=== PATIENT | female | born 1955 | race Caucasian/White ===

== ENCOUNTER 2016-06-24 09:26 | Observation (INO) | payer BC ==
[2016-06-24] MEDS ORDERED: ASPIRIN 81 MG CHEW PO STA (10:31)
[2016-06-24] MEDS ORDERED: SODIUM CHLORIDE 0.9% 1,000 ML IV STA (10:31)
--- NOTE | 2016-06-24 10:47 | ED ---
General Adult HPI - General Source: patient, RN notes reviewed Mode of arrival: ambulatory Limitations: no limitations <Tatiana Monteiro - Last Filed: 06/24/16 14:17> <Jose Luis Okeefe - Last Filed: 06/24/16 14:45> - General Chief complaint: Dizziness Stated complaint: chest pain Time Seen by Provider: 06/24/16 10:22 - History of Present Illness Initial comments: 61-year-old female presents to the emergency Department chief complaint of lightheadedness. Patient initial Christie just felt lightheaded she felt like she might pass out. Patient patient described pain to the right shoulder. Patient states she then went to work feeling off. Patient states while at work she got pain to the left side she felt a little sweaty she said that she looked pale she just did not feel right. Patient states that she then decided she come to the emergency department. Patient states she has hypertension but she' s never had any heart issues. Patient states that this time she has no pain she sits up she gets lightheaded when she was back down she feels better. Patient denies any shortness of breath with this or nausea. Patient states she' s been better at this time but it has been coming and going all morning. Patient states that she is not having any other symptoms with this. Patient denies any recent fever, chills, shortness of breath, back pain, abdominal pain , nausea vomiting, numbness or tingling, dysuria or hematuria, constipation or diarrhea, headaches or visual changes, or any other current symptoms. (Tatiana Monteiro) - Related Data Home Medications Medication Instructions Recorded Confirmed Aspirin 325 - 650 mg PO DAILY PRN 06/24/16 06/24/16 Cholecalciferol [Vitamin D3] 1,000 unit PO DAILY 06/24/16 06/24/16 Ibuprofen [Motrin] 200 - 400 mg PO Q6H PRN 06/24/16 06/24/16 Levothyroxine Sodium [Synthroid] 75 mcg PO DAILY 06/24/16 06/24/16 Losartan-Hctz 50-12.5 mg [Hyzaar 1 tab PO DAILY 06/24/16 06/24/16 50-12.5] Multivits-Min/Iron/FA/Lutein 1 tab PO DAILY 06/24/16 06/24/16 [Centrum Silver Women Tablet] Allergies Allergy/AdvReac Type Severity Reaction Status Date / Time codeine AdvReac Confusion Verified 06/24/16 10:14 Review of Systems ROS Other: All systems not noted in ROS Statement are negative. <Tatiana Monteiro - Last Filed: 06/24/16 14:17> ROS Other: All systems not noted in ROS Statement are negative. <Jose Luis Okeefe - Last Filed: 06/24/16 14:45> ROS Statement: Those systems with pertinent positive or pertinent negative responses have been documented in the HPI. Past Medical History Past Medical History: Hypertension, Thyroid Disorder History of Any Multi-Drug Resistant Organisms: None Reported Past Surgical History: Appendectomy, Hysterectomy Past Psychological History: No Psychological Hx Reported Smoking Status: Never smoker Past Alcohol Use History: None Reported Past Drug Use History: None Reported <Tatiana Monteiro - Last Filed: 06/24/16 14:17> General Exam Limitations: no limitations <Tatiana Monteiro - Last Filed: 06/24/16 14:17> <Jose Luis Okeefe - Last Filed: 06/24/16 14:45> - General Exam Comments Initial Comments: General: The patient is awake and alert, in no distress, and does not appear acutely ill. Eye: Pupils are equal, round and reactive to light, extra-ocular movements are intact; there is normal conjunctiva bilaterally. No signs of icterus. Ears, nose, mouth and throat: There are moist mucous membranes. Neck: The neck is supple, there is no tenderness. Cardiovascular: There is a regular rate and rhythm. No murmur, rub or gallop is appreciated. Respiratory: Lungs are clear to auscultation, respirations are non-labored, breath sounds are equal. No wheezes, stridor, rales, or rhonchi. Gastrointestinal: Soft, non-distended, non-tender abdomen without masses or organomegaly noted. There is no rebound or guarding present. No CVA tenderness. Bowel sounds are unremarkable. Back: There is no tenderness to palpation in the midline. There is no obvious deformity. No rashes noted. Musculoskeletal: Normal ROM, no tenderness, There is no pedal edema. There is no calf tenderness or swelling. Sensation intact. Pulses equal bilaterally 2+. Neurological: CN II-XII intact, There are no obvious motor or sensory deficits. Coordination appears grossly intact. Speech is normal. Skin: Skin is warm and dry and no rashes or lesions are noted. Psychiatric: Cooperative, appropriate mood & affect, normal judgment. (Tatiana Monteiro) Course <Tatiana Monteiro - Last Filed: 06/24/16 14:17> <Jose Luis Okeefe - Last Filed: 06/24/16 14:45> Vital Signs 06/24/16 06/24/16 09:33 13:23 Temperature 98.1 F Pulse Rate 55 L 56 L Respiratory 20 16 Rate Blood Pressure 136/74 146/70 O2 Sat by Pulse 100 99 Oximetry - Reevaluation(s) Reevaluation #1: 06/24/16 14:45 I did personally do a [id number] evaluation the patient she currently is pain- free at rest with no dizziness at this time. Her lung sounds are within normal is this time. The patient will be admitted I did discuss the case with the covering physician. (Jose Luis Okeefe) EKG Findings - EKG Comments: EKG Findings:: Sinus bradycardia 51 bpm, normal axis, no atopy, no S-T depressions or elevations, <Tatiana Monteiro - Last Filed: 06/24/16 14:17> Medical Decision Making - Lab Data Result diagrams: 06/24/16 11:00 06/24/16 11:00 <Tatiana Monteiro - Last Filed: 06/24/16 14:17> - Lab Data Result diagrams: 06/24/16 11:00 06/24/16 11:00 <Jose Luis Okeefe - Last Filed: 06/24/16 14:45> - Medical Decision Making 61-year-old female presents to the emergency Department chief complaint of lightheadedness associated with some atypical type chest pain. At this time patient's lab work and imaging have been reviewed. Due to the patient's symptoms there is concern this may be part in nature. At this time we will admit patient will placed on heparin and do cardiac rule out. This is discussed the patient has agreed. We will consult cardiology for the patient. This and patient is negative. The plan the patient's admitting doctor was contacted and all questions have been answered. (Tatiana Monteiro) - Lab Data Lab Results 06/24/16 06/24/16 06/24/16 Range/Units 11:00 11:00 11:00 WBC 9.5 (3.8-10.6) k/uL RBC 4.45 (3.80-5.40) m/uL Hgb 14.1 (11.4-16.0) gm/dL Hct 41.5 (34.0-46.0) % MCV 93.3 (80.0-100.0) fL MCH 31.7 (25.0-35.0) pg MCHC 34.0 (31.0-37.0) g/dL RDW 11.9 (11.5-15.5) % Plt Count 358 (150-450) k/uL Neutrophils % 80 % Lymphocytes % 15 % Monocytes % 3 % Eosinophils % 1 % Basophils % 0 % Neutrophils # 7.5 (1.3-7.7) k/uL Lymphocytes # 1.4 (1.0-4.8) k/uL Monocytes # 0.3 (0-1.0) k/uL Eosinophils # 0.1 (0-0.7) k/uL Basophils # 0.0 (0-0.2) k/uL PT (9.0-12.0) sec INR (<1.1) APTT (22.0-30.0) sec Sodium 146 H (137-145) mmol/L Potassium 3.9 (3.5-5.1) mmol/L Chloride 105 (98-107) mmol/L Carbon Dioxide 28 (22-30) mmol/L Anion Gap 13 mmol/L BUN 15 (7-17) mg/dL Creatinine 0.71 (0.52-1.04) mg/dL Est GFR (MDRD) Af Amer >60 (>60 ml/min/1.73 sqM) Est GFR (MDRD) Non-Af >60 (>60 ml/min/1.73 sqM) Glucose 98 (74-99) mg/dL Calcium 10.0 (8.4-10.2) mg/dL Magnesium 1.9 (1.6-2.3) mg/dL Total Bilirubin 0.7 (0.2-1.3) mg/dL AST 23 (14-36) U/L ALT 45 (9-52) U/L Alkaline Phosphatase 85 (38-126) U/L Total Creatine Kinase 76 (30-135) U/L CK-MB (CK-2) 0.6 (0.0-2.4) ng/mL CK-MB (CK-2) Rel Index 0.8 Troponin I <0.012 (0.000-0.034) ng/mL Total Protein 7.3 (6.3-8.2) g/dL Albumin 4.4 (3.5-5.0) g/dL Amylase 68 (30-110) U/L Lipase 170 (23-300) U/L Urine Color Urine Appearance (Clear) Urine pH (5.0-8.0) Ur Specific [place] (1.001-1.035) Urine Protein (Negative) Urine Glucose (UA) (Negative) Urine Ketones (Negative) Urine Blood (Negative) Urine Nitrate (Negative) Urine Bilirubin (Negative) Urine Urobilinogen (<2.0) mg/dL Ur Leukocyte Esterase (Negative) 06/24/16 06/24/16 Range/Units 11:00 11:00 WBC (3.8-10.6) k/uL RBC (3.80-5.40) m/uL Hgb (11.4-16.0) gm/dL Hct (34.0-46.0) % MCV (80.0-100.0) fL MCH (25.0-35.0) pg MCHC (31.0-37.0) g/dL RDW (11.5-15.5) % Plt Count (150-450) k/uL Neutrophils % % Lymphocytes % % Monocytes % % Eosinophils % % Basophils % % Neutrophils # (1.3-7.7) k/uL Lymphocytes # (1.0-4.8) k/uL Monocytes # (0-1.0) k/uL Eosinophils # (0-0.7) k/uL Basophils # (0-0.2) k/uL PT 10.0 (9.0-12.0) sec INR 1.0 (<1.1) APTT 21.6 L (22.0-30.0) sec Sodium (137-145) mmol/L Potassium (3.5-5.1) mmol/L Chloride (98-107) mmol/L Carbon Dioxide (22-30) mmol/L Anion Gap mmol/L BUN (7-17) mg/dL Creatinine (0.52-1.04) mg/dL Est GFR (MDRD) Af Amer (>60 ml/min/1.73 sqM) Est GFR (MDRD) Non-Af (>60 ml/min/1.73 sqM) Glucose (74-99) mg/dL Calcium (8.4-10.2) mg/dL Magnesium (1.6-2.3) mg/dL Total Bilirubin (0.2-1.3) mg/dL AST (14-36) U/L ALT (9-52) U/L Alkaline Phosphatase (38-126) U/L Total Creatine Kinase (30-135) U/L CK-MB (CK-2) (0.0-2.4) ng/mL CK-MB (CK-2) Rel Index Troponin I (0.000-0.034) ng/mL Total Protein (6.3-8.2) g/dL Albumin (3.5-5.0) g/dL Amylase (30-110) U/L Lipase (23-300) U/L Urine Color Colorless Urine Appearance Clear (Clear) Urine pH 7.0 (5.0-8.0) Ur Specific [place] 1.004 (1.001-1.035) Urine Protein Negative (Negative) Urine Glucose (UA) Negative (Negative) Urine Ketones Negative (Negative) Urine Blood Negative (Negative) Urine Nitrate Negative (Negative) Urine Bilirubin Negative (Negative) Urine Urobilinogen <2.0 (<2.0) mg/dL Ur Leukocyte Esterase Negative (Negative) Disposition Time of Disposition: 14:18 Decision Date: 06/24/16 Decision Time: 14:18 <Tatiana Monteiro - Last Filed: 06/24/16 14:17> <Jose Luis Okeefe - Last Filed: 06/24/16 14:45> Clinical Impression: Lightheadedness, Unstable angina Disposition: ADMITTED IP TO THIS [facility] Condition: Stable
[2016-06-24 11:26] LABS: Appearance,Urine Clear (Clear); Bilirubin,Urine Negative (Negative); Glucose,Urine (UA) Negative (Negative); Ketones,Urine Negative (Negative); Leukocyte Esterase,Urine Negative (Negative); Nitrite,Urine Negative (Negative); Protein,Urine Negative (Negative); Specific Gravity,Urine 1.004 (1.001-1.035); UA Billing (MACRO vs. MICRO) CHEM; Urobilinogen,Urine <2.0 mg/dL (<2.0)
[2016-06-24 11:27] LABS: Basophils % (A) 0 %; CH 32.4; CHCM 34.8; Eosinophils # (A) 0.1 k/uL (0-0.7); Eosinophils % (A) 1 %; HCT 41.5 % (34.0-46.0); HDW 2.45; HGB 14.1 gm/dL (11.4-16.0); Luc # (Auto) 0.08; Luc % (Auto) 1; Lymphocytes # (A) 1.4 k/uL (1.0-4.8); Lymphocytes % (A) 15 %; MCH 31.7 pg (25.0-35.0); MCV 93.3 fL (80.0-100.0); Mean Platelet Volume 7.2; Monocytes # (A) 0.3 k/uL (0-1.0); Monocytes % (A) 3 %; Neutrophils # (A) 7.5 k/uL (1.3-7.7); Neutrophils % (A) 80 %; RBC 4.45 m/uL (3.80-5.40); RDW 11.9 % (11.5-15.5); WBC 9.5 k/uL (3.8-10.6)
[2016-06-24 11:36] LABS: ALT 45 U/L (9-52); AST 23 U/L (14-36); Alkaline Phosphatase 85 U/L (38-126); Amylase 68 U/L (30-110); Anion Gap 13 mmol/L; Blood Urea Nitrogen 15 mg/dL (7-17); Carbon Dioxide 28 mmol/L (22-30); Chloride 105 mmol/L (98-107); Glucose 98 mg/dL (74-99); Magnesium 1.9 mg/dL (1.6-2.3); Non-African American GFR(MDRD) >60 (>60 ml/min/1.73 sqM); Potassium 3.9 mmol/L (3.5-5.1); Sodium 146 mmol/L (137-145); Total Bilirubin 0.7 mg/dL (0.2-1.3); Total Protein 7.3 g/dL (6.3-8.2)
[2016-06-24 11:51] LABS: Creatine Kinase 76 U/L (30-135)
[2016-06-24 11:53] LABS: Partial Thromboplastin Time 21.6 sec (22.0-30.0)
--- NOTE | 2016-06-24 12:04 | XR ---
EXAMINATION TYPE: XR chest 2V DATE OF EXAM: 06/24/2016 11:22 AM COMPARISON: NONE HISTORY: Right-sided chest pain TECHNIQUE: Frontal and lateral views of the chest are obtained. FINDINGS: There is no focal air space opacity, pleural effusion, or pneumothorax seen. The cardiac silhouette size is within normal limits. There are overlying cardiac leads. The osseous structures a re intact. IMPRESSION: No acute cardiopulmonary process.
[2016-06-24 12:05] LABS: Creatine Kinase MB 0.6 ng/mL (0.0-2.4); Troponin I <0.012 ng/mL (0.000-0.034)
[2016-06-24 13:24] VITALS: RESP 16
[2016-06-24] MEDS ORDERED: NITROGLYCERIN SL TABS 0.4 MG TAB SUBLINGUAL PRN (14:18)
[2016-06-24] MEDS ORDERED: HEPARIN SODIUM,PORCINE/D5W PMX 25,000 UNIT in DEXTROSE/WATER 1 500ML.BAG IV SCH (14:30)
[2016-06-24] MEDS: HEPARIN SODIUM,PORCINE 5,000 UNIT/ML 1 ML VIAL IV ONE (15:27)
[2016-06-24 19:24] LABS: Creatine Kinase 121 U/L (30-135)
[2016-06-24 19:36] LABS: Creatine Kinase MB 1.4 ng/mL (0.0-2.4); Troponin I <0.012 ng/mL (0.000-0.034)
[2016-06-24 23:15] LABS: Creatine Kinase 65 U/L (30-135)
[2016-06-24 23:30] LABS: Creatine Kinase MB 0.4 ng/mL (0.0-2.4); Troponin I <0.012 ng/mL (0.000-0.034)
[2016-06-25] MEDS: HEPARIN SODIUM,PORCINE 5,000 UNIT/ML 1 ML VIAL IV ONE (02:25)
[2016-06-25] MEDS ORDERED: HEPARIN SODIUM,PORCINE 5,000 UNIT/ML 1 ML VIAL IV PRN (02:29)
[2016-06-25] MEDS ORDERED: LEVOTHYROXINE 75 MCG TAB PO SCH (06:30)
[2016-06-25] MEDS ORDERED: ASPIRIN 325 MG TAB PO SCH (09:00)
[2016-06-25] MEDS ORDERED: LOSARTAN-HCTZ 50-12.5 MG 1 EACH TAB PO SCH (09:00)
[2016-06-25 09:40] LABS: Mean Platelet Volume 7.6
[2016-06-25 10:04] LABS: Cholesterol 163 mg/dL (<200); HDL Cholesterol 58 mg/dL (40-60); Triglycerides 72 mg/dL (<150)
--- NOTE | 2016-06-25 10:32 | P.CRDCN ---
History of Present Illness Consult date: 06/25/16 History of present illness: This is a 61-year-old female with history of hypertensive cardiac vascular disease for which she is being treated with Hyzaar. Apparently yesterday morning she woke up and start heparin feeling of dizziness and lightheadedness that lasted for a few minutes and then subsided spontaneously. Patient was able to do daily chores and then went to the office driving. On the way patient started feeling lightheaded and she was concerned that she may not be able to make it. She was sweating. She may to the office and sat in the chair and continued to be lightheaded and pulse up and was in the 40s. She looked pale and one of her colleagues but her to the hospital. Since admission here patient has had mild sinus bradycardia. She also admits that she had right shoulder pain along with this bradycardia. Her cardiac enzymes are negative. She is being scheduled for an echocardiogram, stress echo and also to help postural changes recorded. Further examination depend upon the findings on the above tests. Review of Systems As per the chart Past Medical History Past Medical History: Hypertension, Thyroid Disorder Additional Past Medical History / Comment(s): hypothyroid, thyroid nodules History of Any Multi-Drug Resistant Organisms: None Reported Past Surgical History: Appendectomy, Hysterectomy Additional Past Surgical History / Comment(s): Colonoscopy Past Anesthesia/Blood Transfusion Reactions: No Reported Reaction, Motion Sickness Past Psychological History: No Psychological Hx Reported Additional Psychological History / Comment(s): Pt resides with her spouse. She is independent. Smoking Status: Never smoker Past Alcohol Use History: None Reported Past Drug Use History: None Reported - Past Family History Father History Unknown: Yes Additional Family Medical History / Comment(s): Father in a train accident. Mother Family Medical History: Respiratory Disorder Additional Family Medical History / Comment(s): Mother has respiratory issues. She is a smoker. Medications and Allergies Home Medications Medication Instructions Recorded Confirmed Type Aspirin 325 - 650 mg PO DAILY PRN 06/24/16 06/24/16 History Cholecalciferol [Vitamin D3] 1,000 unit PO DAILY 06/24/16 06/24/16 History Ibuprofen [Motrin] 200 - 400 mg PO Q6H PRN 06/24/16 06/24/16 History Levothyroxine Sodium [Synthroid] 75 mcg PO DAILY 06/24/16 06/24/16 History Losartan-Hctz 50-12.5 mg [Hyzaar 1 tab PO DAILY 06/24/16 06/24/16 History 50-12.5] Multivits-Min/Iron/FA/Lutein 1 tab PO DAILY 06/24/16 06/24/16 History [Centrum Silver Women Tablet] Allergies Allergy/AdvReac Type Severity Reaction Status Date / Time codeine AdvReac Confusion Verified 06/24/16 10:14 Physical Exam Vitals: Vital Signs Temp Pulse Pulse Resp BP BP Pulse Ox 06/25/16 08:00 98.6 F 53 L 16 119/74 97 06/25/16 04:00 97.9 F 57 L 16 113/73 96 06/25/16 03:49 56 L 16 06/25/16 00:00 65 16 06/24/16 23:35 98.1 F 65 16 110/62 94 L 06/24/16 20:00 98.0 F 62 16 110/63 95 06/24/16 18:04 59 L 16 06/24/16 17:30 98.4 F 59 L 16 158/74 95 06/24/16 17:10 16 06/24/16 15:35 97.8 F 54 L 16 128/60 97 Intake and Output 06/24/16 06/25/16 06/25/16 22:59 06:59 14:59 Intake Total 188.34 Balance 188.34 Intake: Intake, IV Titration 188.34 Amount Heparin Sodium,Porcine/ 188.34 D5w Pmx 25,000 unit In Dextrose/Water 1 500ml. bag @ 12 UNITS/KG/HR 17.2 mls/hr IV .Q24H [facility] Rx#: [id number] Other: Voiding Method Toilet Toilet Toilet # Voids 1 1 Weight 72.8 kg GENERAL EXAM: Patient is alert and oriented and doesn't appear to be in any acute distress HEENT: Normocephalic. Normal reaction of pupils, equal size, normal range of extraocular motion. No erythema or exudates in the throat. NECK: No masses, no nuchal rigidity. CHEST: No chest wall deformity. LUNGS: Equal air entry with no crackles or wheeze. HEART: S1 and S2 normal with no audible mumurs or gallops. Regular rhythm, femorals equal on both sides.. ABDOMEN: No hepatosplenomegaly, normal bowel sounds, no guarding or rigidity. SKIN: No rashes CENTRAL NERVOUS SYSTEM: No focal deficits. EXTREMITIES: No cyanosis, clubbing or edema. Results 06/25/16 08:56 06/24/16 11:00 Cardiac Enzymes 06/24/16 06/24/16 Range/Units 18:38 22:17 CK-MB (CK-2) 1.4 0.4 (0.0-2.4) ng/mL Troponin I <0.012 <0.012 (0.000-0.034) ng/mL Coagulation 06/24/16 06/25/16 Range/Units 22:17 08:56 APTT 42.1 H 49.4 H (22.0-30.0) sec Lipids 06/25/16 Range/Units 08:56 Triglycerides 72 (<150) mg/dL Cholesterol 163 (<200) mg/dL HDL Cholesterol 58 (40-60) mg/dL CBC 06/25/16 Range/Units 08:56 Plt Count 296 (150-450) k/uL Current Medications Generic Name Dose Route Start Last Admin Trade Name Freq PRN Reason Stop Dose Admin Aspirin 325 mg 06/25/16 09:00 Aspirin PO DAILY [facility] Cholecalciferol 1,000 unit 06/25/16 12:00 Vitamin D3 PO 1200 [facility] HCTZ/Losartan Potassium 1 each 06/25/16 09:00 Hyzaar 50-12.5 PO DAILY [facility] Heparin Sodium (Porcine) 0 unit 06/25/16 02:29 Heparin IV PER PROTOCOL PRN Low PTT Protocol Heparin Sodium/Dextrose 25,000 500 mls @ 17.2 mls/hr 06/24/16 14:30 06/25/16 02:25 unit/ IV Solution IV 14.65 units/kg/hr .Q24H [facility] 21 mls/hr Protocol Titration 12 UNITS/KG/HR Levothyroxine Sodium 75 mcg 06/25/16 06:30 Synthroid PO DAILY@0630 [facility] Multivitamins 1 each 06/25/16 12:00 Theragran PO 1200 [facility] Nitroglycerin 0.4 mg 06/24/16 14:18 Nitrostat SUBLINGUAL Q5M PRN Chest Pain Intake and Output 06/24/16 06/25/16 06/25/16 22:59 06:59 14:59 Intake Total 188.34 Balance 188.34 Intake: Intake, IV Titration 188.34 Amount Heparin Sodium,Porcine/ 188.34 D5w Pmx 25,000 unit In Dextrose/Water 1 500ml. bag @ 12 UNITS/KG/HR 17.2 mls/hr IV .Q24H [facility] Rx#: [id number] Other: Voiding Method Toilet Toilet Toilet # Voids 1 1 Weight 72.8 kg 06/25/16 08:56 EKG Interpretations (text) Sinus bradycardia Assessment and Plan (1) Right shoulder pain Status: Acute (2) Lightheadedness Status: Acute (3) Hypertension Status: Acute Plan: We'll monitor her orthostatic blood pressures. She is going to be evaluated by echocardiogram and also stress echo. Further recommendation will depend upon clinical course. Thyroid function studies will also be obtained. If this test turned out to be normal, patient could be discharged home with long-term monitoring with event monitor.
[2016-06-25] MEDS ORDERED: CHOLECALCIFEROL 1,000 UNIT TAB PO SCH (12:00)
[2016-06-25] MEDS ORDERED: MULTIVITAMINS, THERA 1 EACH TAB PO SCH (12:00)
[2016-06-25 12:28] VITALS: BP 113/68; PULSE 62; TEMP 98.3
--- NOTE | 2016-06-25 12:49 | ECHOF ---
Referral Reason:Chest pain and cardiomyopathy MEASUREMENTS -------- HEIGHT: 162.6 cm WEIGHT: 72.6 kg BP: IVSd: 1.0 cm (0.6 - 1.1) LVIDd: 3.6 cm (3.9 - 5.3) LVPWd: 1.3 cm (0.6 - 1.1) IVSs: 1.6 cm LVIDs: 1.6 cm LVPWs: 1.8 cm Ao Diam: 3.0 cm (2.0 - 3.7) AV Cusp: 2.3 cm (1.5 - 2.6) LA Diam: 3.5 cm (2.7 - 3.8) MV EXCURSION: 13.189 mm (> 18.000) MV EF SLOPE: 93 mm/s (70 - 150) EPSS: 0.2 cm MV E Sanjay: 0.81 m/s MV DecT: 213 ms MV A Sanjay: 0.76 m/s MV E/A Ratio: 1.07 AR PHT: 540 ms RAP: 5.00 mmHg RVSP: 40.07 mmHg FINDINGS -------- Sinus rhythm. This was a technically good study. There is mild concentric left ventricular hypertrophy. Overall left ventricular systolic function is normal with, an EF between 55 - 60 %. The right ventricle is normal in size and function. The left atrium is normal in size. The right atrium is normal in size. Aneurysmal Interatrial septum. Possible PFO Aortic valve is trileaflet and is mildly thickened. There is mild aortic regurgitation. Mild mitral regurgitation is present. Moderate tricuspid regurgitation present. There is mild pulmonary hypertension. The right ventricular systolic pressure, as measured by Doppler, is 40.07mmHg. Pulmonic valve appears structurally normal. The aortic root size is normal. The pericardium is normal. CONCLUSIONS -------- 1. Sinus rhythm. 2. Aortic valve is trileaflet and is mildly thickened. 3. There is mild aortic regurgitation. 4. Mild mitral regurgitation is present. 5. Moderate tricuspid regurgitation present. 6. There is mild pulmonary hypertension. 7. The right ventricular systolic pressure, as measured by Doppler, is 40.07mmHg. 8. Pulmonic valve appears structurally normal. 9. The aortic root size is normal. 10. The pericardium is normal. 11. This was a technically good study. 12. There is mild concentric left ventricular hypertrophy. 13. Overall left ventricular systolic function is normal with, an EF between 55 - 60 %. 14. The right ventricle is normal in size and function. 15. The left atrium is normal in size. 16. The right atrium is normal in size. 17. Aneurysmal Interatrial septum. 18. Possible PFO PSYCH ASSISTANT: Sophia Azar RDCS
--- NOTE | 2016-06-25 14:15 | ECHOS ---
DATE OF SERVICE: 06/25/2016 AGE: 61Y SEX: F HT: 64" WT: 160 lbs. Protocol Jesse: X Others: Stress Echo Stage: 3 Dur. of Exercise: 8:00 *Heart Rate Blood Pressure *Rest: 63 Rest: 138/85 * *Max. Achieved: 147 Maximum BP: 178/87 85% PMHR: 134 100% PMHR: 158 *METS: 9.0 INDICATIONS: Chest pain. MEDICATIONS: Synthroid, Hyzaar. Resting ECG shows sinus rhythm, rate of 63 beats per minute, NV interval 0.16, QRS 0.08, normal ST-T waves. Utilizing a standard Jesse protocol, a symptom-limited treadmill test was performed. Patient exercised for total of 8 minutes, reaching a peak heart rate of 147 beats per minute, approximately 93% predicted maximum heart rate without any chest pain or pressure or ST segment deviations indicative of ischemia. Patient did not report any symptoms throughout the study. Baseline images show normal thickening and contractility. Postexercise images shows improved contractility and thickening consistent with normal stress echocardiogram. IMPRESSION: 1. Normal stress echocardiogram. 2. Patient has good cardiopulmonary fitness as indicated by O2 max and METs. 3. Patient attained a peak metabolic activity equivalent to 9 METs. 4. Patient did not report any symptoms throughout the study.
--- NOTE | 2016-06-25 16:19 | P.HPIM ---
History of Present Illness H&P Date: 06/25/16 Chief Complaint: Right chest pain HISTORY AND PHYSICAL AND DISCHARGE SUMMARY: This is a 61-year-old female. Her primary care physician is Dr. Mauricio Farfan. She has a past medical history of hypertension, hypothyroidism and thyroid nodules. Patient states she had sudden onset of chest pain in the right upper area and right shoulder and also felt lightheaded and dizzy. She states it started when she woke up. She denies any triggering factors. She denies any change in the pain when she moved her neck, had her shoulder. She describes it as an ache. She denies having any nausea or vomiting. Pain resolved 1-2 hours after her arrival here it seemed to go away on its own. She denies any lower extremity edema, shortness of breath. Troponin 3 negative. Triglycerides 72, cholesterol 163, LDL 91, HDL 58. TSH 2.830. Urinalysis negative. Amylase and lipase within normal limits. Patient was placed in the observation unit and seen in consultation by cardiology. Stress test was ordered which was negative and patient will be discharged home today in stable condition. Echocardiogram revealed mild aortic regurgitation, mild mitral regurgitation, moderate tricuspid regurgitation, mild pulmonary hypertension, mild concentric left ventricular hypertrophy, EF 55-60% aneurysmal intra-atrial septum, possible PFO. Review of Systems All systems: negative Constitutional: Denies chills, Denies fever Eyes: denies blurred vision, denies pain Ears, nose, mouth and throat: Reports vertigo, Denies headache, Denies sore throat Cardiovascular: Reports chest pain, Reports lightheadedness, Denies dyspnea on exertion, Denies edema, Denies leg edema, Denies orthopnea, Denies palpitations , Denies shortness of breath, Denies syncope Respiratory: Denies cough, Denies cough with sputum, Denies dyspnea Gastrointestinal: Denies abdominal pain, Denies diarrhea, Denies nausea, Denies vomiting Genitourinary: Denies dysuria, Denies hematuria Musculoskeletal: Denies myalgias Integumentary: Denies pruritus, Denies rash Neurological: Denies numbness, Denies weakness Psychiatric: Denies anxiety, Denies depression Endocrine: Denies fatigue, Denies weight change Past Medical History Past Medical History: Hypertension, Thyroid Disorder Additional Past Medical History / Comment(s): hypothyroid, thyroid nodules History of Any Multi-Drug Resistant Organisms: None Reported Past Surgical History: Appendectomy, Hysterectomy Additional Past Surgical History / Comment(s): Colonoscopy Past Anesthesia/Blood Transfusion Reactions: No Reported Reaction, Motion Sickness Past Psychological History: No Psychological Hx Reported Additional Psychological History / Comment(s): Pt resides with her spouse. She is independent. Smoking Status: Never smoker Past Alcohol Use History: None Reported Additional Past Alcohol Use History / Comment(s): She has been a lifelong nonsmoker. She denies any medical marijuana, marijuana, street drug or alcohol use. Past Drug Use History: None Reported - Past Family History Father History Unknown: Yes Additional Family Medical History / Comment(s): Father in a train accident. Mother Family Medical History: Respiratory Disorder Additional Family Medical History / Comment(s): Mother has respiratory issues. She is a smoker. Medications and Allergies Home Medications Medication Instructions Recorded Confirmed Type Aspirin 325 - 650 mg PO DAILY PRN 06/24/16 06/24/16 History Cholecalciferol [Vitamin D3] 1,000 unit PO DAILY 06/24/16 06/24/16 History Ibuprofen [Motrin] 200 - 400 mg PO Q6H PRN 06/24/16 06/24/16 History Levothyroxine Sodium [Synthroid] 75 mcg PO DAILY 06/24/16 06/24/16 History Losartan-Hctz 50-12.5 mg [Hyzaar 1 tab PO DAILY 06/24/16 06/24/16 History 50-12.5] Multivits-Min/Iron/FA/Lutein 1 tab PO DAILY 06/24/16 06/24/16 History [Centrum Silver Women Tablet] Allergies Allergy/AdvReac Type Severity Reaction Status Date / Time codeine AdvReac Confusion Verified 06/24/16 10:14 Physical Exam Vitals: Vital Signs Temp Pulse Pulse Pulse Pulse Pulse Resp 06/25/16 12:00 98.3 F 64 72 62 16 06/25/16 08:00 98.6 F 53 L 16 06/25/16 04:00 97.9 F 57 L 16 06/25/16 03:49 56 L 16 06/25/16 00:00 65 16 06/24/16 23:35 98.1 F 65 16 06/24/16 20:00 98.0 F 62 16 06/24/16 18:04 59 L 16 06/24/16 17:30 98.4 F 59 L 16 06/24/16 17:10 16 06/24/16 15:35 97.8 F 54 L 16 BP BP BP BP BP Pulse Ox 06/25/16 12:00 114/86 115/80 113/68 93 L 06/25/16 08:00 119/74 97 06/25/16 04:00 113/73 96 06/25/16 03:49 06/25/16 00:00 06/24/16 23:35 110/62 94 L 06/24/16 20:00 110/63 95 06/24/16 18:04 06/24/16 17:30 158/74 95 06/24/16 17:10 06/24/16 15:35 128/60 97 Intake and Output 06/24/16 06/25/16 06/25/16 22:59 06:59 14:59 Intake Total 188.34 Balance 188.34 Intake: Intake, IV Titration 188.34 Amount Heparin Sodium,Porcine/ 188.34 D5w Pmx 25,000 unit In Dextrose/Water 1 500ml. bag @ 12 UNITS/KG/HR 17.2 mls/hr IV .Q24H [facility] Rx#: [id number] Other: Voiding Method Toilet Toilet Toilet # Voids 1 1 Weight 72.8 kg Gen: This is a 61-year-old female. She is sitting up in bed and eating lunch and appears to be in no acute distress. HEENT: Head is atraumatic, normocephalic. Pupils equal, round. Sclerae is anicteric. NECK: Supple. No JVD. No lymphadenopathy. No thyromegaly. LUNGS: Clear to auscultation. No wheezes or rhonchi. No intercostal retractions. HEART: Regular rate and rhythm. No murmur. ABDOMEN: Soft. Bowel sounds are present. No masses. No tenderness. EXTREMITIES: No pedal edema. No calf tenderness. Dorsalis pedis +2 bilaterally. NEUROLOGICAL: Patient is awake, alert and oriented x3. Cranial nerves 2 through 12 are grossly intact. Results CBC & Chem 7: 06/25/16 08:56 06/24/16 11:00 Labs: Abnormal Lab Results - Last 24 Hours (Table) 06/24/16 06/25/16 Range/Units 22:17 08:56 APTT 42.1 H 49.4 H (22.0-30.0) sec Thrombosis Risk Factor Assmnt - DVT/VTE Prophylaxis DVT/VTE Prophylaxis: Mechanical Prophylaxis ordered - Choose All That Apply Any of the Below Risk Factors Present?: Yes Each Factor Represents 1 point: Obesity (BMI >25) Other Risk Factors: Yes Each Risk Factor Represents 2 Points: Age 61-74 years Other congenital or acquired thrombophilia - If yes, enter type in comment: No Thrombosis Risk Factor Assessment Total Risk Factor Score: 3 Thrombosis Risk Factor Assessment Level: Moderate Risk Assessment and Plan Plan: 1. Right anterior chest wall and right shoulder pain, noncardiac. Stress test negative. Patient will be discharged home today in stable condition. 2. Echocardiogram reveals aneurysmal intra-atrial septum and possible PFO. Patient will need follow-up with cardiology as an outpatient. 3. Hypertension. Continue Hyzaar daily. 4. Hypothyroidism. Continue levothyroxine 75 g daily. 5. Vitamin D deficiency. Continue supplement. Patient placed in the observation unit. Discharge plan: Return home Impression and plan of care have been directed as dictated by the signing physician. Leticia Altamirano nurse practitioner acting as scribe for signing physician. Cc: Dr. Mauricio Trujillo Time with Patient: Greater than 30
== END 2016-06-25 16:15 | disposition home or self-care (01) ==
LOC: EC 09:26 → 3OBS 14:18
PROVIDERS: ADMIT Internal Medicine; ATTEND Internal Medicine
DX: R07.89 Other chest pain (principal); M25.511 Pain in right shoulder; I25.3 Aneurysm of heart; I10 Essential (primary) hypertension; E03.9 Hypothyroidism, unspecified; E55.9 Vitamin D deficiency, unspecified; R42 Dizziness and giddiness; R00.1 Bradycardia, unspecified; I08.3 Combined rheumatic disorders of mitral, aortic and tricuspid valves; I27.2 Other secondary pulmonary hypertension; Z79.82 Long term (current) use of aspirin; Z79.899 Other long term (current) drug therapy
CPT/HCPCS: 99285 ×2; 96376 ×2; 96361 ×4; 36415; 93005; 93017; 93306; 93350; 80061; 80053; 82150; 82550; 82553; 83690; 83735; 84443; 84484; 85025; 85049; 85610; 85730 ×2; 81003; 71020; 96365; 96366; G0378 ×2; J1644 ×3

== ENCOUNTER → 2023-12-21 | Outpatient (CLI) | payer MEDICARE ==
--- NOTE | 2023-12-21 10:48 | MM ---
Reason for Exam: Additional evaluation requested from prior study. Risk Values: Jeri 5 year model risk: 1.1%. NCI Lifetime model risk: 3.5%. Tissue Density: Left: There are scattered areas of fibroglandular density. Findings: Analyzed By CAD. 1.5 cm oval mass approximately 2:00 position left breast posterior depth show slight interval. Reassessment by ultrasound recommended. Overall Assessment: Incomplete: need additional imaging evaluation, BI-RAD 0 Management: Diagnostic Breast Ultrasound of the left breast. Electronically signed and approved by: Paige Mobley M.D. Radiologist
--- NOTE | 2023-12-21 11:19 | USB ---
Reason for Exam: Additional evaluation requested from abnormal screening. Risk Values: Jeri 5 year model risk: 1.1%. NCI Lifetime model risk: 3.5%. Technique: Method: Targeted. Prior Study Comparison: 04/22/2021 Bilateral Screening Mammogram, [facility]. 12/02/2022 Left Diagnostic Mammogram, [facility]. 06/18/2023 Bilateral Screening Mammogram, [facility]. Findings: The lateral section of the breast of the left breast, the axilla of the left breast and the retroareolar of the left breast were scanned. Targeted ultrasound 2 to 3:00 position left breast including scanning of the subareolar region and axilla. Enlargement of the previously seen cyst from 9 mm now measuring 1.5 x 1.0 x 0.9 cm and now with a bilobed appearance. Aspiration with clip placement recommended to ensure that this corresponds to the enlarging mammographic mass. Overall Assessment: Suspicious, BI-RAD 4 Management: Aspiration of the left breast. Either aspiration or vacuum-assisted biopsy can be performed. Results were given to the patient verbally at the time of exam. Electronically signed and approved by: Paige Mobley M.D. Radiologist
== END | disposition home or self-care (01) ==
LOC: RADMAMWWP 10:10
PROVIDERS: ATTEND Family Medicine
DX: R92.322 Mammographic fibroglandular density, left breast (principal); R92.8 Other abnormal and inconclusive findings on diagnostic imaging of breast
CPT/HCPCS: 77065; 76642; G0279; 77061

== ENCOUNTER → 2024-01-06 | Day surgery (SDC) | payer MEDICARE ==
--- NOTE | 2024-01-13 10:40 | MM ---
Reason for Exam: Post Procedure Mammogram. Last screening mammogram was performed 7 month(s) ago. Risk Values: Jeri 5 year model risk: 1.1%. NCI Lifetime model risk: 3.5%. Prior Study Comparison: 12/02/2022 Left Diagnostic Mammogram, [facility]. 06/18/2023 Bilateral Screening Mammogram, [facility]. 12/21/2023 Left MG 3D work up w/cad LT, [facility]. Tissue Density: Left: The breasts are heterogeneously dense, which may obscure small masses. Pathology Description: Location: 2 o'clock. coil clip The ultrasound guided cyst aspiration procedure was explained to the patient. The risks, benefits, alternatives were discussed. An informed consent was then obtained. A time out was performed. The patient was placed in supine positioning for imaging and for the procedure. The overlying skin was prepped with betadine and sterilely draped in usual sterile fashion. 1% lidocaine was used as anesthetic into the skin and deeper breast tissue up to area of concern in the left breast 2 o'clock breast. Under ultrasound guidance, an 18-gauge spinal needle was advanced into the cyst and aspiration yielded 1-2 mL of straw-colored fluid. The fluid was labeled and sent for laboratory analysis. A coil [place] jose r clip was left in lesion. Good hemostasis was obtained with direct pressure. Postprocedure mammogram: The patient was transferred to mammography for physician ordered post procedure mammogram for clip placement verification. The clip is in the expected region of the biopsy. The patient tolerated the procedure well without any immediate complication. The patient was discharged to home in stable condition. Impression: Successful ultrasound guided cyst aspiration left breast. Cytology pending. Pathology Results: Result: Benign, Benign cyst. Pathology and radiology were reviewed. Findings are concordant. RIGHT BREAST, TWO O'CLOCK, ASPIRATE: Hypocellular specimen consisting of mainly blood with rare clusters of bland apocrine lining cells, suggestive of benign apocrine cyst/cyst contents. Limited due to low cellularity. Overall Assessment: Benign Assessment: MG diagnostic mammo LT wo CAD. - Left: Benign, BI-RAD 2. Management: Diagnostic Breast Ultrasound of the left breast in 6 months. Electronically signed and approved by: Onesimo Sandhu D.O. Radiologis
== END ==
LOC: RADUSWWP 09:50
PROVIDERS: ATTEND Family Medicine
DX: N60.01 Solitary cyst of right breast (principal); R92.8 Other abnormal and inconclusive findings on diagnostic imaging of breast
CPT/HCPCS: 88108; 88305; 77065; 76942; 19000; A4648

== ENCOUNTER → 2024-03-14 | Outpatient (CLI) | payer MEDICARE ==
[2024-03-14 10:18] LABS: INR 0.9 (<1.2); Partial Thromboplastin Time 22.1 sec (22.0-30.0)
[2024-03-14 14:59] LABS: HCT 41.5 % (37.2-46.3); HGB 13.9 g/dL (12.0-15.0); MCH 31.7 pg (27.0-32.0); MCHC 33.5 g/dL (32.0-37.0); MCV 94.7 FL (80.0-97.0); Mean Platelet Volume 11.4 FL (9.5-12.2); NRBC Per 100 WBC 0 X 10*3/uL (0.00-0.01); Platelet Count 321 X 10*3/uL (140-440); RBC 4.38 X 10*6/uL (4.10-5.20); RDW 12.3 % (11.5-14.5); WBC 6.24 X 10*3/uL (4.50-10.00)
[2024-03-14 16:24] LABS: ALT 32 U/L (8-44); AST 16 U/L (13-35); Albumin 4.3 g/dL (3.8-4.9); Albumin/Globulin Ratio 1.95 Ratio (1.60-3.17); Alkaline Phosphatase 83 U/L (41-126); BUN/Creat Ratio 20.86 Ratio (12.00-20.00); Blood Urea Nitrogen 14.6 mg/dL (9.0-27.0); Calcium 9.8 mg/dL (8.7-10.3); Carbon Dioxide 28.1 mmol/L (21.6-31.8); Chloride 104 mmol/L (96-109); Globulin 2.2 g/dL (1.6-3.3); Glucose 94 mg/dL (70-110); Potassium 4.6 mmol/L (3.5-5.5); Sodium 141 mmol/L (135-145); Total Bilirubin 0.4 mg/dL (0.3-1.2); Total Protein 6.5 g/dL (6.2-8.2)
== END ==
LOC: LABPAT 08:54
PROVIDERS: ATTEND Orthopaedic Surgery
DX: Z01.818 Encounter for other preprocedural examination (principal); Z22.322 Carrier or suspected carrier of Methicillin resistant Staphylococcus aureus; E11.9 Type 2 diabetes mellitus without complications
CPT/HCPCS: 36415; 80053; 83036; 85027; 85610; 85730; 87070

== ENCOUNTER 2024-03-25 05:42 | Observation (INO) | payer MEDICARE ==
[2024-03-25] MEDS: IV FLUID CONTINUATION 1,000 ML IV ONE (06:00)
[2024-03-25] MEDS ORDERED: TRANEXAMIC 1,000 MG/100ML-NACL 1,000 MG in SALINE 1 100ML.BAG IVPB PRN (06:00)
[2024-03-25] MEDS ORDERED: TRANEXAMIC 1,000 MG/100ML-NACL 1,000 MG in SALINE 1 100ML.BAG IV PRN (06:00)
[2024-03-25] MEDS: FAMOTIDINE 20 MG/2 ML VIAL IVP PRN (06:33)
[2024-03-25] MEDS: LACTATED RINGERS 1,000 ML IV SCH (06:33)
[2024-03-25] MEDS: ONDANSETRON 4 MG/2 ML VIAL IVP PRN (06:34)
[2024-03-25] MEDS: KETOROLAC 15 MG/ML 1 ML VIAL IVP PRN (06:34)
[2024-03-25] MEDS: DEXAMETHASONE SOD PHOSPHATE 10 MG/ML 1 ML VIAL IV PRN (06:34)
[2024-03-25] MEDS: ACETAMINOPHEN TAB 500 MG TAB PO PRN (06:34)
[2024-03-25] MEDS: oxyCODONE ER 10 MG TAB.ER.12H PO PRN (06:35)
[2024-03-25] MEDS: DOCUSATE 100 MG CAP PO PRN (06:51)
[2024-03-25] MEDS: MIDAZOLAM 2 MG/2 ML VIAL IV PRN (06:53)
[2024-03-25] MEDS ORDERED: fentaNYL (PF) 50 MCG/ML 2 ML AMP IV PRN (07:00)
[2024-03-25] MEDS ORDERED: TRANEXAMIC 1,000 MG/100ML-NACL PREMIX BAG ONE (07:38)
[2024-03-25] MEDS ORDERED: SUCCINYLCHOLINE CHLORIDE 200 MG/10 ML VIAL IV ONE (07:38)
[2024-03-25] MEDS ORDERED: MIDAZOLAM 2 MG/2 ML VIAL ONE (07:38)
[2024-03-25] MEDS ORDERED: GLYCOPYRROLATE 0.2 MG/ML 2 ML VIAL ONE (07:38)
[2024-03-25] MEDS ORDERED: PROPOFOL 10 MG/ML 20 ML VIAL IV ONE (07:38)
[2024-03-25] MEDS ORDERED: fentaNYL (PF) 50 MCG/ML 2 ML AMP ONE (07:38)
[2024-03-25] MEDS ORDERED: NEOSTIGMINE 1 MG/ML 10 ML VIAL ONE (07:38)
[2024-03-25] MEDS ORDERED: DEXAMETHASONE SOD PHOSPHATE 4 MG/ML 1 ML VIAL ONE (07:38)
[2024-03-25] MEDS ORDERED: HYDROmorphone (PF) 1 MG/ML ONE (07:38)
[2024-03-25] MEDS ORDERED: ROPIVACAINE 5 MG/ML 30 ML VIAL ONE (07:38)
[2024-03-25] MEDS ORDERED: ROCURONIUM 10 MG/ML (5 ML VIAL) IV ONE (07:38)
[2024-03-25] MEDS ORDERED: LIDOCAINE 1% INJ 10MG/ML (20 ML MDV) ONE (07:38)
[2024-03-25] MEDS ORDERED: PHENYLEPHRINE-0.9% NACL SYG 1,000 MCG/10 ML SYRINGE ONE (07:38)
[2024-03-25] MEDS ORDERED: ePHEDrine 50 MG/ML 1 ML VIAL ONE (07:38)
[2024-03-25] MEDS: ROPIVACAINE/EPI/CLONIDINE/KET 50 ML SYRINGE MISCELLANE PRN (08:13)
--- NOTE | 2024-03-25 08:14 | P.ANPRN ---
Procedure Note - Anesthesia - Nerve Block Performed Left Adductor Canal Single Time Out Performed: Yes Date of Procedure: 03/25/24 Procedure Start Time: 06:52 Procedure Stop Time: 06:57 Location of Patient: PreOp Indication: Acute Post-Operative Pain, Requested by Surgeon Sedation Type: Sedate with meaningful contact maintained Preparation: Sterile Prep, Sterile Dressing Position: Supine Catheter: None Needle Types: Facet Needle Gauge: 20 Ultrasound used to visualize needle placement: Yes Ultrasound used to observe medication spread: Yes Injectate: 0.5% Ropivacaine (see comment for volume) (20 ml + decadron 3 mg) Blood Aspirated: No Pain Paresthesia on Injection Noted: No Resistance on Injection: Normal Image Stored and Saved: Yes Events: Uneventful and Well Tolerated Left iPack Single Date of Procedure: 03/25/24 Procedure Start Time: 06:59 Procedure Stop Time: 07:02 Location of Patient: PreOp Indication: Acute Post-Operative Pain, Requested by Surgeon Sedation Type: Sedate with meaningful contact maintained Preparation: Sterile Prep, Sterile Dressing Position: Right Lateral Catheter: None Needle Types: Facet Needle Gauge: 20 Ultrasound used to visualize needle placement: Yes Ultrasound used to observe medication spread: Yes Injectate: 0.5% Ropivacaine (see comment for volume) (10 ml + decadron 1 mg) Blood Aspirated: No Pain Paresthesia on Injection Noted: No Resistance on Injection: Normal Image Stored and Saved: Yes Events: Uneventful and Well Tolerated
[2024-03-25] MEDS: LACTATED RINGERS 1,000 ML IV ONE (08:32)
[2024-03-25] MEDS ORDERED: MAGNESIUM HYDROXIDE 2,400 MG/30 ML CUP PO PRN (09:27)
[2024-03-25] MEDS ORDERED: NALOXONE 0.4 MG/ML 1 ML VIAL IV PRN (09:27)
[2024-03-25] MEDS ORDERED: bisacodyL 10 MG SUPP RECTAL PRN (09:27)
[2024-03-25] MEDS ORDERED: HYDROmorphone 0.5 MG/0.5 ML SYRINGE IVP PRN (09:27)
[2024-03-25] MEDS ORDERED: NA PHOS,M-B/NA PHOS,DI-BA 133 ML ENEMA RECTAL PRN (09:27)
[2024-03-25] MEDS ORDERED: ONDANSETRON 4 MG/2 ML VIAL IVP PRN (09:27)
--- NOTE | 2024-03-25 09:27 | P.OP ---
Date of Procedure: 03/25/24 Preoperative Diagnosis: severe left knee osteoarthritis Postoperative Diagnosis: same Procedure(s) Performed: 1. Left total knee arthroplasty 2. Computer assisted musculoskeletal navigation using CT/MRI images Implants: 1. [employer] CR Femur Size #3 2. [place] [employer] [place] Tibial Base Size #2 3. [place] [employer] CS poly Size #29 4. [employer] all poly patella, Size #29 Anesthesia: GETA, regional Surgeon: Adrian David Teaseler #1: Harpreet Corbin Estimated Blood Loss (ml): 100 IV fluids (ml): 800 Pathology: none sent Condition: stable Disposition: PACU Indications for Procedure: I met with the patient preoperatively in the office setting and discussed treatment of their symptomatic knee arthritis. They failed a long course of nonsurgical treatment and elected to proceed with an elective total knee replacement. I discussed the potential risks and complications at length and gave them ample time to ask questions. Risks discussed included: risks from anesthesia, superficial site surgical infection, acute and/or chronic periprosthetic joint infection, delayed wound healing, drainage, wound necrosis, instability, stiffness, stiffness requiring manipulation and/or revision surgery, damage to local blood vessels or nerves, aseptic loosening of the implants, extensor mechanism issues including disruption, patellar maltracking, avascular necrosis etc., continued or worsened knee pain, generalized dissatisfaction with surgical outcome, need for revision surgery, an inability to regain preinjury level of function, DVT, PE, other medical complications, and possibly loss of life or limb. The patient voiced their understanding that while these are the most common complications other less common complications are possible. They provided both their verbal and written consent to go forward with surgery. Operative Findings: severe tricompartmental arthritis with complete cartilage loss in the medial and patellofemoral joints and partial-thickness cartilage loss in the lateral compartment Description of Procedure: The patient was identified in preoperative holding and the correct operative extremity was verified and marked with a marker. I reviewed the consent form with the patient at length. All of their questions were answered. The patient was given a block by anesthesia. They were then brought back to the operating room. They were transferred onto the operating room table where a general anesthetic, preoperative antibiotics, and tranexamic acid were administered by anesthesia. A tourniquet was applied to the proximal aspect of the operative extremity. The contralateral extremity was padded under the heel and secured to the operating room table with a nonsterile blue towel and tape. The ipsilateral arm was carefully draped across the patient's chest and secured with a pillow and foam. A post was applied over the lateral aspect of the ipsilateral thigh and a bolster was placed under the ipsilateral foot. I verified that the operative extremity was stable and the knee was flexed to 90. The operative extremity was then placed in a leg garces, nonsterile drapes were applied, and the extremity was prepped and draped sterilely in the standard sterile fashion. Prior to starting surgery timeout was performed identifying the correct patient, operative extremity, and procedure. The leg was then elevated, exsanguinated with an Esmarch bandage, and the tourniquet was inflated. An anterior midline incision was made sharply with a scalpel. Once I had dissected deep to the superficial fascial layer medial and lateral flaps were elevated. A medial parapatellar arthrotomy was created. Upon opening the knee joint there were diffuse arthritic changes in all 3 compartments. The anterior horn of the medial meniscus were sharply released and a medial release was performed around the posterior medial corner of the knee to facilitate retractor placement. The fat pad was excised with electrocautery. The patella was found to be severely arthritic and a provisional cut was made with a sagittal saw to facilitate mobilization of the extensor mechanism during the procedure. Remnants of the ACL and PCL were then excised from the notch. 4 mm pins were then placed within the incision in the medial distal femur and proximal tibia. Arrays were applied to the pins and I verified they were completely tightened. The knee was then registered with the Cortus SA robot and manipulations in implant position were made to balance the knee and opitmize implant position. Using the Cortus SA robotic saw all cuts were made in accordance with our plan. After all bony fragments had been removed the cuts were verified with the planar probe. The tibia was then subluxed forward and sized. The knee was brought into flexion and a lamina position classification manager was placed to allow removal of the meniscal remnants both medially and laterally as well as posterior osteophytes. Local anesthetic was then infiltrated around the joint capsule. Trial implants were then placed within the knee. Range of motion and collateral ligament tension was then evaluated. Adjustments in implant size and position were then made accordingly. Once the knee was felt to be appropriately balanced the Zay pins were removed. The patella was then recut, sized, and punched. A trial patellar button was then placed. With the trial components in place, the patella tracked midline. The femur was then drilled and the trial component removed. The trial tibial component was then appropriately rotated, pinned, and prepared for the keel. All trial components were then removed from the knee. The knee was thoroughly irrigated with pulsatile lavage. Cement was prepared via vacuum mixing in a bowl on the back table. I then hand pressurized cement into the femur and tibia and placed the implants beginning with the tibial base tray and poly liner, femoral component, and finally the patellar button. All extruded cement was removed including from the pin sites. Once the cement had hardened the knee was evaluated one final time with the final polyethylene liner in place. The knee had full extension and flexion and felt stable to varus and valgus stress throughout the arc of motion. The tourniquet was released and with the tourniquet down the patella tracked midline. All bleeders were controlled with electrocautery. The knee was then soaked for 3 minutes with a dilute Betadine soak. The knee was thoroughly irrigated using 3 L of sterile saline and pulsatile lavage. The extensor mechanism was then reapproximated using pop off Vicryl sutures followed by a running barbed suture. The knee was then closed in layers with a 0 strata fix for the deep fascial layer, 2-0 strata fix for the superficial subcutaneous layer and Monocryl and Steri-Strips for the skin. A sterile dressing was applied. I verified that all instrument, sponge, and sharp counts were correct. The patient was then transferred off the operating room table, extubated, and brought to recovery having tolerated the procedure well. Harpreet Corbin PA-C was required as a skilled imaging assistant for patient positioning, draping, exposure, retraction, closure of wound and application of dressing PLAN: The patient can weight-bear as tolerated on the operative extremity. DVT prophylaxis with aspirin 81 mg twice a day based on preoperative risk stratification. Internal medicine for perioperative medical management. 2 doses of post-operative antibiotics. Physical therapy for gait training. Follow-up in the office in 2 weeks for wound check and x-rays of the knee including an AP and lateral.
--- NOTE | 2024-03-25 10:46 | XR ---
EXAMINATION TYPE: XR knee limited LT DATE OF EXAM: 03/25/2024 9:59 AM CLINICAL INDICATION: Female, 68 years old with history of Evaluation for Postop abnormality and align ment; [facility] COMPARISON: None. TECHNIQUE: XR knee limited LT; examined in Frontal, lateral projections. FINDINGS: Status post total knee arthroplasty changes with hardware in appropriate alignment and in tact. No evidence of fracture. Subcutaneous lucencies and lucencies within the joint consistent with surgical changes. IMPRESSION: Status post total knee arthroplasty changes with hardware intact and appropriate alignment. No fractu res identified. [facility], , 03/25/2024 10:43 AM
[2024-03-25] MEDS: HYDROcodone/APAP 5-325MG 1 EACH TAB PO PRN (15:42)
[2024-03-25] MEDS: SODIUM CHLORIDE 0.9% 1,000 ML IV SCH (20:57)
[2024-03-25] MEDS: SENNOSIDES-DOCUSATE SODIUM 1 EACH TAB PO SCH (21:36)
[2024-03-25] MEDS: ASPIRIN 81 MG PO SCH (21:36)
[2024-03-25] MEDS: HYDROcodone/APAP 10-325MG 1 EACH TAB PO PRN (22:20)
[2024-03-26] MEDS: LEVOTHYROXINE 75 MCG TAB PO SCH (05:57)
--- NOTE | 2024-03-26 07:45 | P.PN ---
Subjective Patient is doing relatively well this morning. She does report slipping while on the toilet and following towards the floor last night. She was able to get up and walk afterwards. She also required straight catheterization due to urinary retention. Her pain is well-controlled this morning. She has no other complaints. Objective - Vital Signs Vital signs: Vital Signs Temp 98.0 F 03/26/24 07:11 Pulse 77 03/26/24 07:11 Resp 15 03/26/24 07:11 BP 127/78 03/26/24 07:11 Pulse Ox 94 L 03/26/24 07:11 FiO2 Intake & Output 03/25/24 03/26/24 03/26/24 18:59 06:59 18:59 Intake Total 1850 Output Total 200 750 Balance 1650 -750 Weight 77.4 kg Intake: IV 1850 Output: Urine 750 Straight 500 Estimated Blood Loss 200 Other: # Voids 1 4 - Exam The patient is resting comfortably in the bed. A focused examination of the operative leg was conducted. On inspection there is a clean-appearing dressing over the knee. There is no drainage or strike through. The thigh and calf are soft. Femoral nerve function is intact. Motor and sensory function are intact in the foot and ankle. The tips of the toes are warm and well perfused with brisk capillary refill. Assessment and Plan Assessment: Postoperative day #1 status post left total knee replacement Plan: 1. Weightbearing as tolerated on the operative extremity. Up with assistance. 2. DVT prophylaxis with aspirin 81 mg twice a day 3. Physical therapy for gait training and mobilization 4. Internal medicine for perioperative medical management 5. PT for gait training 6. Disposition: Will plan on keeping the patient until tomorrow unless she passes PT and wants to go home today.
[2024-03-26] MEDS: CHOLECALCIFEROL 25 MCG (1000 IU) TABLET PO SCH (09:08)
[2024-03-26] MEDS: MULTIVITAMINS, THERA 1 EACH TAB PO SCH (09:08)
[2024-03-26] MEDS: hydrOXYzine pamoate 25 MG CAP PO PRN (09:11)
[2024-03-26 10:02] LABS: BUN/Creat Ratio 18.71 Ratio (12.00-20.00); Blood Urea Nitrogen 13.1 mg/dL (9.0-27.0); Calcium 8.9 mg/dL (8.7-10.3); Carbon Dioxide 24.5 mmol/L (21.6-31.8); Chloride 104 mmol/L (96-109); Glucose 113 mg/dL (70-110); Magnesium 1.7 mg/dL (1.5-2.4); Potassium 3.7 mmol/L (3.5-5.5); Sodium 140 mmol/L (135-145)
[2024-03-26 10:03] LABS: Basophils # (A) 0.01 X 10*3/uL (0.00-0.10); Basophils % (A) 0.1 %; Eosinophils # (A) 0.01 X 10*3/uL (0.04-0.35); Eosinophils % (A) 0.1 %; HCT 32.8 % (37.2-46.3); HGB 11.2 g/dL (12.0-15.0); Lymphocytes # (A) 1.27 X 10*3/uL (0.90-5.00); Lymphocytes % (A) 9.7 %; MCH 32.2 pg (27.0-32.0); MCHC 34.1 g/dL (32.0-37.0); MCV 94.3 FL (80.0-97.0); Mean Platelet Volume 11.4 FL (9.5-12.2); Monocytes # (A) 1.14 X 10*3/uL (0.20-1.00); Monocytes % (A) 8.7 %; NRBC Per 100 WBC 0 X 10*3/uL (0.00-0.01); Neutrophils # (A) 10.65 X 10*3/uL (1.80-7.70); Neutrophils % (A) 80.9 %; Platelet Count 303 X 10*3/uL (140-440); RBC 3.48 X 10*6/uL (4.10-5.20); WBC 13.15 X 10*3/uL (4.50-10.00)
--- NOTE | 2024-03-26 13:08 | P.CONS ---
History of Present Illness - Reason for Consult Consult date: 03/26/24 - History of Present Illness Very pleasant 68-year-old female who presented to [facility] to undergo a left total knee arthroplasty on 03/25. Her past medical history significant for hypothyroidism. Medicine has been consulted for medical management while the patient is present in the hospital following her surgery. As of this morning patient is saturating 94% on room air with a respiratory rate of 15, blood pressure 127/78, heart rate of 77. Patient x-ray done following surgery which showed post total knee arthroplasty changes with hardware intact and in appropriate alignment. With no fracture identified. REVIEW OF SYSTEMS: CONSTITUTIONAL: No fever, no malaise. CARDIOVASCULAR: No chest pain, no palpitations, no syncope. PULMONARY: No shortness of breath, no cough. GASTROINTESTINAL: No diarrhea, no nausea, no vomiting, no abdominal pain. NEUROLOGICAL: No headaches, no weakness. PHYSICAL EXAMINATION: GENERAL: The patient is alert and oriented x3, not in any acute distress. Well developed, well nourished. HEENT: Pupils are round and equally reacting to light. EOMI. No scleral icterus. No conjunctival pallor. Normocephalic, atraumatic. No pharyngeal erythema. No thyromegaly. CARDIOVASCULAR: S1 and S2 present. No murmurs, rubs, or gallops. PULMONARY: Chest is clear to auscultation, no wheezing or crackles. ABDOMEN: Soft, nontender, nondistended, normoactive bowel sounds. No palpable organomegaly. MUSCULOSKELETAL: No joint swelling or deformity. EXTREMITIES: No cyanosis, clubbing, or pedal edema. NEUROLOGICAL: Gross neurological examination did not reveal any focal deficits. Awake, alert, oriented x3. SKIN: No rashes. Assessment and plan # Medical management following left total knee arthroplasty Patient does not have significant past medical history Patient's home medications consist of multivitamins Will continue to monitor and provide recommendations as needed Patient has Vermilion 10, Vermilion 5, Dilaudid 0.5, Dilaudid 0.25 available for pain control as needed per surgery recommendation # Hypothyroidism Patient maintained on home medication of 75 mcg daily of Synthroid # Hypertension - Maintained on home medication of 12.5 mg daily of Hyzaar Thank you very much for this consultation Dictation was produced using [employer] software. please excuse any grammatical, word or spelling errors. Attestation I have seen and examined this patient with my resident , discussed the same with the resident/BARB, and agree with the dictator's assessment and plan as written Dr. Jose david Past Medical History Past Medical History: Hypertension, Osteoarthritis (OA), Thyroid Disorder Additional Past Medical History / Comment(s): hypothyroid, thyroid nodules, Bilat osteoarthritis bilat knees hcm aortic valve stenosis, History of Any Multi-Drug Resistant Organisms: None Reported Past Surgical History: Appendectomy, Hysterectomy, Tonsillectomy Additional Past Surgical History / Comment(s): Colonoscopy, buzz cataract surgery Past Anesthesia/Blood Transfusion Reactions: No Reported Reaction, Motion Sickness Past Psychological History: No Psychological Hx Reported Additional Psychological History / Comment(s): Pt resides with her spouse. She is independent. Smoking Status: Never smoker Past Alcohol Use History: None Reported Additional Past Alcohol Use History / Comment(s): She has been a lifelong nonsmoker. She denies any medical marijuana, marijuana, street drug or alcohol use. Past Drug Use History: None Reported - Past Family History Father History Unknown: Yes Additional Family Medical History / Comment(s): Father in a train accident. Mother Family Medical History: Respiratory Disorder Additional Family Medical History / Comment(s): Mother has respiratory issues. She is a smoker. Medications and Allergies Home Medications Medication Instructions Recorded Confirmed Type Aspirin 325 - 650 mg PO DAILY PRN 06/24/16 03/25/24 History Cholecalciferol [Vitamin D3 (25 1,000 unit PO DAILY 06/24/16 03/25/24 History Mcg = 1000 Iu)] Ibuprofen [Motrin] 200 - 400 mg PO Q6H PRN 06/24/16 03/25/24 History Levothyroxine Sodium [Synthroid] 75 mcg PO DAILY 06/24/16 03/25/24 History Losartan-Hctz 50-12.5 mg [Hyzaar 1 tab PO DAILY 06/24/16 03/25/24 History 50-12.5] Multivit-Min/Iron/Folic/Lutein 1 tab PO DAILY 06/24/16 03/25/24 History [Centrum Silver Women Tablet] Aspirin 81 mg PO BID #60 tab 03/25/24 Rx Diclofenac Sodium [Voltaren] 75 mg PO BID #60 tab 03/25/24 Rx Docusate [Colace] 100 mg PO BID #30 capsule 03/25/24 Rx HYDROcodone/APAP 5-325MG [Vermilion 1 - 2 tab PO Q6HR PRN #56 tab 03/25/24 Rx 5-325] Omeprazole [PriLOSEC] 40 mg PO DAILY #30 cap 03/25/24 Rx Allergies Allergy/AdvReac Type Severity Reaction Status Date / Time codeine AdvReac Confusion Verified 03/25/24 06:17 Physical Exam Vitals: Vital Signs Temp Pulse Pulse Resp BP BP Pulse Ox 03/26/24 07:11 98.0 F 77 15 127/78 94 L 03/26/24 00:58 98.1 F 61 18 94/59 97 03/25/24 18:55 97.3 F L 61 18 101/65 96 03/25/24 13:40 97.6 F 60 20 110/71 93 L 03/25/24 12:45 57 L 15 114/64 96 03/25/24 12:30 57 L 16 115/63 95 03/25/24 12:00 64 16 112/60 98 03/25/24 11:30 55 L 14 109/61 96 03/25/24 11:00 53 L 14 120/60 96 03/25/24 10:43 52 L 14 116/60 95 03/25/24 10:28 53 L 14 128/63 98 03/25/24 10:13 53 L 12 132/63 96 03/25/24 09:58 64 12 116/61 96 03/25/24 09:43 96.8 F L 72 12 131/63 93 L Intake and Output 03/25/24 03/26/24 03/26/24 22:59 06:59 14:59 Output Total 750 Balance -750 Output: Urine 750 Straight 500 Other: # Voids 1 4 Results CBC & Chem 7: 03/26/24 05:44 03/26/24 05:44
[2024-03-26] MEDS: HYDROmorphone 0.5 MG/0.5 ML SYRINGE IVP PRN (15:41)
--- NOTE | 2024-03-27 09:18 | P.PN ---
Subjective The patient had a rough night and day yesterday. She has had pain in her knee. She is also had a difficult time ambulating. This morning she is complaining of moderate to severe pain in her knee. She continues to complain of weakness. Objective - Vital Signs Vital signs: Vital Signs Temp 97.6 F 03/27/24 08:00 Pulse 84 03/27/24 08:00 Resp 17 03/27/24 08:00 BP 151/85 03/27/24 08:00 Pulse Ox 96 03/27/24 08:00 FiO2 Intake & Output 03/26/24 03/27/24 03/27/24 18:59 06:59 18:59 Other: # Voids 3 3 - Exam The patient is resting in bed. She is in moderate distress secondary to pain. On inspection of the operative leg her dressing over the knee is intact. There is moderate swelling. She has tenderness. Her thigh and calf are soft. She can actively plantarflex and dorsiflex her ankle and her toes. - Labs CBC & Chem 7: 03/26/24 05:44 03/26/24 05:44 Labs: Abnormal Lab Results - Last 24 Hours (Table) 03/26/24 03/26/24 Range/Units 05:44 05:44 WBC 13.15 H (4.50-10.00) X 10*3/uL RBC 3.48 L (4.10-5.20) X 10*6/uL Hgb 11.2 L (12.0-15.0) g/dL Hct 32.8 L (37.2-46.3) % MCH 32.2 H (27.0-32.0) pg Immature Gran # 0.07 H (0.00-0.04) X 10*3/uL Neutrophils # 10.65 H (1.80-7.70) X 10*3/uL Monocytes # 1.14 H (0.20-1.00) X 10*3/uL Eosinophils # 0.01 L (0.04-0.35) X 10*3/uL Glucose 113 H (70-110) mg/dL Assessment and Plan Assessment: Postoperative day #2 status post total knee replacement Plan: The patient continues to slowly improve and complains of pain and weakness. I do not think she is ready to discharge home today. Continue attempts at mobilization out of bed into a chair with walker and assistance. I would like her reassessed by physical therapy tomorrow. We briefly discussed the possibility of rehab or half-way facility. She would like to try to discharge home if possible. We will follow her progress tomorrow.
--- NOTE | 2024-03-27 13:57 | P.PN ---
Subjective Progress Note Date: 03/27/24 Very pleasant 68-year-old female who presented to [facility] to undergo a left total knee arthroplasty on 03/25. Her past medical history significant for hypothyroidism. Medicine has been consulted for medical management while the patient is present in the hospital following her surgery. As of this morning patient is saturating 94% on room air with a respiratory rate of 15, blood pressure 127/78, heart rate of 77. Patient x-ray done following surgery which showed post total knee arthroplasty changes with hardware intact and in appropriate alignment. With no fracture identified. 03/27. Patient seen and examined. Vital signs stable. Denies any pain. States she is doing better REVIEW OF SYSTEMS: CONSTITUTIONAL: No fever, no malaise,. CARDIOVASCULAR: No chest pain, no palpitations, no syncope. PULMONARY: No shortness of breath, no cough, GASTROINTESTINAL: No diarrhea, no nausea, no vomiting, no abdominal pain. NEUROLOGICAL: No headaches, no weakness, PHYSICAL EXAMINATION: GENERAL: The patient is alert and oriented x3, not in any acute distress. Well developed, well nourished. HEENT: Pupils are round and equally reacting to light. EOMI. No scleral icterus. No conjunctival pallor. Normocephalic, atraumatic. No pharyngeal erythema. No thyromegaly. CARDIOVASCULAR: S1 and S2 present. No murmurs, rubs, or gallops. PULMONARY: Chest is clear to auscultation, no wheezing or crackles. ABDOMEN: Soft, nontender, nondistended, normoactive bowel sounds. No palpable organomegaly. MUSCULOSKELETAL: Left knee surgical dressing seen EXTREMITIES: No cyanosis, clubbing, or pedal edema. NEUROLOGICAL: Gross neurological examination did not reveal any focal deficits. SKIN: No rashes. Assessment and plan # Medical management following left total knee arthroplasty Continue pain management per orthopedics Continue DVT prophylaxis per orthopedics Resume home meds PT and OT consulted # Hypothyroidism Patient maintained on home medication of 75 mcg daily of Synthroid # Hypertension - Maintained on home medication of 12.5 mg daily of Hyzaar Labs and medication were reviewed.. Continue same treatment. Continue with symptomatic treatment. Resume home medication. Monitor labs and vitals. DVT and GI prophylaxis. Further recommendations as per clinical course of the patient Dictation was produced using [employer] dictation software. please excuse any grammatical, word or spelling errors. Objective - Vital Signs Vital signs: Vital Signs Temp 97.6 F 03/27/24 08:00 Pulse 84 03/27/24 08:00 Resp 17 03/27/24 08:00 BP 151/85 03/27/24 08:00 Pulse Ox 96 03/27/24 08:00 FiO2 Intake & Output 03/26/24 03/27/24 03/27/24 18:59 06:59 18:59 Other: Voiding Method Toilet # Voids 3 3 1 # Bowel Movements 1 - Labs CBC & Chem 7: 03/26/24 05:44 03/26/24 05:44
[2024-03-28 02:47] VITALS: TEMP 98.6
[2024-03-28 07:33] VITALS: BP 153/83; PULSE 72; RESP 17
--- NOTE | 2024-03-28 07:55 | P.PN ---
Subjective Progress Note Date: 03/28/24 Principal diagnosis: Status post left total knee arthroplasty on 03/25/2024 for severe osteoarthritis No acute events overnight. Patient has less pain today than yesterday. Pain has been well-controlled today. Patient states they have been moving their knee and their quad strength has improved. Care plan discussed with nursing staff. Objective - Vital Signs Vital signs: Vital Signs Temp 98.6 F 03/28/24 06:45 Pulse 72 03/28/24 06:45 Resp 17 03/28/24 06:45 BP 153/83 03/28/24 06:45 Pulse Ox 93 L 03/28/24 06:45 FiO2 Intake & Output 03/27/24 03/28/24 03/28/24 18:59 06:59 18:59 Other: Voiding Method Toilet Toilet # Voids 5 3 # Bowel Movements 2 - Exam Patient was examined at bedside this morning. Patient is awake alert and able to answer questions. On exam patient is resting in bed comfortably in no acute distress. Surgical dressing over the left knee is clean dry and intact without strikethrough. Patient's left femoral nerve function is grossly intact and patient is able to plantarflex and dorsiflex ankle and toes. Patient's left thigh is mildly swollen, is soft, and left calf is soft. - Labs CBC & Chem 7: 03/26/24 05:44 03/26/24 05:44 Assessment and Plan Assessment: Postop day #3 status post left total knee arthroplasty for severe osteoarthritis Plan: Physical therapy reevaluation today. If patient does well, patient may discharge home later today.
[2024-03-28 08:51] LABS: Basophils # (A) 0.03 X 10*3/uL (0.00-0.10); Basophils % (A) 0.3 %; Eosinophils # (A) 0.19 X 10*3/uL (0.04-0.35); Eosinophils % (A) 2.1 %; HCT 32.4 % (37.2-46.3); HGB 10.9 g/dL (12.0-15.0); Lymphocytes # (A) 2.47 X 10*3/uL (0.90-5.00); Lymphocytes % (A) 27.9 %; MCH 31.7 pg (27.0-32.0); MCHC 33.6 g/dL (32.0-37.0); MCV 94.2 FL (80.0-97.0); Mean Platelet Volume 11.1 FL (9.5-12.2); Monocytes # (A) 0.76 X 10*3/uL (0.20-1.00); Monocytes % (A) 8.6 %; NRBC Per 100 WBC 0 X 10*3/uL (0.00-0.01); Neutrophils # (A) 5.37 X 10*3/uL (1.80-7.70); Neutrophils % (A) 60.9 %; Platelet Count 283 X 10*3/uL (140-440); RBC 3.44 X 10*6/uL (4.10-5.20); RDW 12.3 % (11.5-14.5); WBC 8.84 X 10*3/uL (4.50-10.00)
--- NOTE | 2024-03-28 10:56 | P.PN ---
Subjective Progress Note Date: 03/28/24 Very pleasant 68-year-old female [facility] on 03/25. Her past medical history significant for hypothyroidism. Medicine has been consulted for medical management while the patient is present in the hospital following her surgery. As of this morning patient is saturating 94% on room air with a respiratory rate of 15, blood pressure 127/78, heart rate of 77. Patient x-ray done following surgery which showed post total knee arthroplasty changes with hardware intact and in appropriate alignment. With no fracture identified. 03/27/24. Patient seen and examined. Vital signs stable. Denies any pain. States she is doing better 03/28/24. Patient seen and examined. No acute events overnight. Vital signs stable. Patient states pain is improving. She will be seeing physical therapist later today for determine if she can go home. REVIEW OF SYSTEMS: CONSTITUTIONAL: No fever, no malaise,. CARDIOVASCULAR: No chest pain, no palpitations, no syncope. PULMONARY: No shortness of breath, no cough, GASTROINTESTINAL: No diarrhea, no nausea, no vomiting, no abdominal pain. NEUROLOGICAL: No headaches, no weakness, PHYSICAL EXAMINATION: GENERAL: The patient is alert and oriented x3, not in any acute distress. Well developed, well nourished. HEENT: Pupils are round and equally reacting to light. EOMI. No scleral icterus. No conjunctival pallor. Normocephalic, atraumatic. No pharyngeal erythema. No thyromegaly. CARDIOVASCULAR: S1 and S2 present. No murmurs, rubs, or gallops. PULMONARY: Chest is clear to auscultation, no wheezing or crackles. ABDOMEN: Soft, nontender, nondistended, normoactive bowel sounds. No palpable organomegaly. MUSCULOSKELETAL: Left knee surgical dressing seen EXTREMITIES: No cyanosis, clubbing, or pedal edema. NEUROLOGICAL: Gross neurological examination did not reveal any focal deficits. SKIN: No rashes. Assessment and Plan # Medical management following left total knee arthroplasty Continue pain management per orthopedics Continue DVT prophylaxis per orthopedics Resume home meds PT and OT consulted Medically cleared from our standpoint # Hypothyroidism Patient maintained on home medication of 75 mcg daily of Synthroid # Hypertension - Maintained on home medication of 12.5 mg daily of Hyzaar Labs and medication were reviewed.. Continue same treatment. Continue with sy mptomatic treatment. Resume home medication. Monitor labs and vitals. DVT and GI prophylaxis. Further recommendations as per clinical course of the patient Dictation was produced using [email or web address] dictation software. please excuse any grammatical, word or spelling errors. Attestation I have seen and examined this patient with my resident , discussed the same with the resident/BARB, and agree with the dictator's assessment and plan as written Dr. Jose david Objective - Vital Signs Vital signs: Vital Signs Temp 98.6 F 03/28/24 06:45 Pulse 72 03/28/24 06:45 Resp 17 03/28/24 06:45 BP 153/83 03/28/24 06:45 Pulse Ox 93 L 03/28/24 06:45 FiO2 Intake & Output 03/27/24 03/28/24 03/28/24 18:59 06:59 18:59 Other: Voiding Method Toilet Toilet # Voids 5 3 # Bowel Movements 2 - Labs CBC & Chem 7: 03/28/24 03:30 03/26/24 05:44
--- NOTE | 2024-03-28 17:08 | P.DS ---
Providers Date of admission: 03/28/24 12:58 Attending physician: Adrian David Consults: 03/25/24 09:27 Consult Physician Routine Consulting Provider: Trixie Rico Consult Reason/Comments: post op medical management Do you want consulting provider notified?: Yes Primary care physician: [facility] Course: Patient presented to preop on 03/25/2024 for scheduled left verito total knee arth roplasty for severe left knee osteoarthritis of conservative management. Patient tolerated procedure well and was transferred to the orthopedic floor afterwards. Patient had left knee pain. Patient worked with physical therapy. Patient continued to improve over the weekend. Patient was reevaluated by physical therapy today and will be discharged home health care. Patient Condition at Discharge: Good Plan - Discharge Summary Discharge Rx Participant: Yes New Discharge Prescriptions: New Aspirin 81 mg PO BID #60 tab Docusate [Colace] 100 mg PO BID #30 capsule Diclofenac Sodium [Voltaren] 75 mg PO BID #60 tab HYDROcodone/APAP 5-325MG [Humphreys 5-325] 1 - 2 tab PO Q6HR PRN #56 tab PRN Reason: Pain Omeprazole [PriLOSEC] 40 mg PO DAILY #30 cap No Action Multivit-Min/Iron/Folic/Lutein [Centrum Silver Women Tablet] 1 tab PO DAILY Ibuprofen [Motrin] 200 - 400 mg PO Q6H PRN PRN Reason: Pain Cholecalciferol [Vitamin D3 (25 Mcg = 1000 Iu)] 1,000 unit PO DAILY Aspirin 325 - 650 mg PO DAILY PRN PRN Reason: Pain Losartan-Hctz 50-12.5 mg [Hyzaar 50-12.5] 1 tab PO DAILY Levothyroxine Sodium [Synthroid] 75 mcg PO DAILY Discharge Medication List Aspirin 325 - 650 mg PO DAILY PRN 06/24/16 [History] Cholecalciferol [Vitamin D3 (25 Mcg = 1000 Iu)] 1,000 unit PO DAILY 06/24/16 [History] Ibuprofen [Motrin] 200 - 400 mg PO Q6H PRN 06/24/16 [History] Levothyroxine Sodium [Synthroid] 75 mcg PO DAILY 06/24/16 [History] Losartan-Hctz 50-12.5 mg [Hyzaar 50-12.5] 1 tab PO DAILY 06/24/16 [History] Multivit-Min/Iron/Folic/Lutein [Centrum Silver Women Tablet] 1 tab PO DAILY 06/24/16 [History] Aspirin 81 mg PO BID #60 tab 03/25/24 [Rx] Diclofenac Sodium [Voltaren] 75 mg PO BID #60 tab 03/25/24 [Rx] Docusate [Colace] 100 mg PO BID #30 capsule 03/25/24 [Rx] HYDROcodone/APAP 5-325MG [Humphreys 5-325] 1 - 2 tab PO Q6HR PRN #56 tab 03/25/24 [Rx] Omeprazole [PriLOSEC] 40 mg PO DAILY #30 cap 03/25/24 [Rx] Follow up Appointment(s)/Referral(s): [facility] - 1-2 Days ([facility] will call you to schedule your in home physical therapy visits. ) Mauricio Trujillo MD [Primary Care Provider] - 04/04/24 11:30 am Adrian David MD [Medical Doctor] - 04/07/24 1:00 pm Activity/Diet/Wound Care/Special Instructions: 1. Weight-bear as tolerated on your operative extremity unless instructed otherwise. Use a walker or other assistive device to ambulate. 2. Leave surgical dressing in place. If your dressing becomes saturated with blood, there is drainage, or the dressing becomes loose please contact the office. 3. It is okay to shower with your surgical dressing, but do not submerge in water (no hot tubs, bath's, swimming etc.) 4. Make sure to take her blood clot prevention medication as prescribed (aspirin, Eliquis, Xarelto, and Plavix are commonly prescribed medications for blood clot prevention) 5. While taking Humphreys or Percocet for pain make sure you're taking a stool softener (Colace) and drink lots of water. 6. Keep all follow-up appointments as scheduled. You will usually be seen in 1-2 weeks following surgery. 7. Please contact the office with any questions or concerns [phone] Discharge Disposition: HOME WITH HOME HEALTH SERVICES
== END 2024-03-28 14:16 | disposition home health service (06) ==
LOC: OR 05:42 → 4SSUR 09:34 → OR 03-28 14:11
PROVIDERS: ADMIT Orthopaedic Surgery; ATTEND Orthopaedic Surgery
DX: M17.12 Unilateral primary osteoarthritis, left knee (principal); G89.18 Other acute postprocedural pain; R33.9 Retention of urine, unspecified; E03.9 Hypothyroidism, unspecified; I10 Essential (primary) hypertension; I35.0 Nonrheumatic aortic (valve) stenosis; Z79.82 Long term (current) use of aspirin; Z79.890 Hormone replacement therapy; Z79.899 Other long term (current) drug therapy; Z88.5 Allergy status to narcotic agent
CPT/HCPCS: 27447; 97116; 97161; 64447; 64999; 80048; 83735; 85025 ×2; 73560; G0378; C1776; C1713; J2250; J0330; J1100 ×2; J2710; J0690 ×2; J2405; J2003; J3010; J3490; J1171 ×3; J2795; J1885; J2704; J2371; J1596

== ENCOUNTER → 2024-09-20 | Outpatient (CLI) | payer MEDICARE ==
--- NOTE | 2024-09-20 09:46 | CT ---
EXAMINATION TYPE: CT right knee - [facility] Protocol DATE OF EXAM: 09/20/2024 9:25 AM COMPARISON: None.. CLINICAL INDICATION: Female, 69 years old with history of M17.11 UNILATERAL PRIMARY OSTEOARTHRITIS, R IGHT KN; PHH, RT knee [facility]ALA protocol, pain, TECHNIQUE: Axial images were obtained of the bilateral hips, knee and bilateral ankles: CT right kne e - [facility] Protocol, Additional coronal and sagittal reformatted images and soft tissue and bone window were obtained for review of the bilateral hips, knee and bilateral ankles. Contrast used: mL of , (None if empty) Oral contrast used: (None if empty) CT DLP: 873 mGycm, Automated exposure control for dose reduction was used. FINDINGS: Exam is for surgical planning and not for diagnostic purposes. The visualized portion of the hips demonstrate moderate degenerative changes bilaterally. No acute in trapelvic process. The bony structures of the pelvis are intact. Uterus is noted surgically absent. Metallic hardware from total left knee arthroplasty is present. There is severe narrowing medial tibi ofemoral compartment on the right knee. There is moderate narrowing patellofemoral compartment noted. The visualized ankles demonstrates no significant incidental finding. No evidence of fractures. IMPRESSION: Severe medial tibiofemoral compartment degenerative change right knee. [facility], , 09/20/2024 9:43 AM
== END | disposition home or self-care (01) ==
LOC: RADCTMAIN 07:58
PROVIDERS: ATTEND Orthopaedic Surgery
DX: M17.11 Unilateral primary osteoarthritis, right knee (principal)

== ENCOUNTER → 2024-09-20 | Outpatient (CLI) | payer MEDICARE ==
[2024-09-20 10:33] LABS: Partial Thromboplastin Time 20.7 sec (22.0-30.0)
[2024-09-20 14:52] LABS: ALT 21 U/L (8-44); AST 17 U/L (13-35); Albumin 4.3 g/dL (3.8-4.9); Albumin/Globulin Ratio 1.87 Ratio (1.60-3.17); Alkaline Phosphatase 93 U/L (41-126); BUN/Creat Ratio 20.43 Ratio (12.00-20.00); Blood Urea Nitrogen 14.3 mg/dL (9.0-27.0); Calcium 10.1 mg/dL (8.7-10.3); Carbon Dioxide 28.3 mmol/L (21.6-31.8); Chloride 104 mmol/L (96-109); Globulin 2.3 g/dL (1.6-3.3); Glucose 101 mg/dL (70-110); Potassium 4.5 mmol/L (3.5-5.5); Sodium 141 mmol/L (135-145); Total Bilirubin 0.5 mg/dL (0.3-1.2); Total Protein 6.6 g/dL (6.2-8.2)
[2024-09-20 15:52] LABS: HCT 44.1 % (37.2-46.3); HGB 14.3 g/dL (12.0-15.0); MCH 30.7 pg (27.0-32.0); MCHC 32.4 g/dL (32.0-37.0); MCV 94.6 FL (80.0-97.0); Mean Platelet Volume 11.2 FL (9.5-12.2); NRBC Per 100 WBC 0 X 10*3/uL (0.00-0.01); Platelet Count 322 X 10*3/uL (140-440); RBC 4.66 X 10*6/uL (4.10-5.20)
[2024-09-20 16:30] LABS: INR 0.9 (<1.2); Prothrombin Time 10.2 sec (10.0-12.5)
== END | disposition home or self-care (01) ==
LOC: LABPAT 08:43
PROVIDERS: ATTEND Orthopaedic Surgery
DX: Z01.812 Encounter for preprocedural laboratory examination (principal); Z22.322 Carrier or suspected carrier of Methicillin resistant Staphylococcus aureus; M17.11 Unilateral primary osteoarthritis, right knee; E11.9 Type 2 diabetes mellitus without complications
CPT/HCPCS: 80053; 83036; 85027; 85610; 85730; 87070

== ENCOUNTER 2024-10-21 05:35 | Day surgery (SDC) | payer MEDICARE ==
[~2024-10-21 05:35] MED LIST: HYDROmorphone 0.5 MG/0.5 ML SYRINGE IVP PRN; LIDOCAINE 1% (10MG/ML) FOR IV START INTRADERMA PRN; fentaNYL (PF) 50 MCG/ML 2 ML AMP IVP PRN
[2024-10-21] MEDS ORDERED: TRANEXAMIC 1,000 MG/100ML-NACL 1,000 MG in SALINE 1 100ML.BAG IVPB PRN (06:00)
[2024-10-21] MEDS ORDERED: TRANEXAMIC 1,000 MG/100ML-NACL 1,000 MG in SALINE 1 100ML.BAG IV PRN (06:00)
[2024-10-21] MEDS: oxyCODONE ER 10 MG TAB.ER.12H PO PRN (06:17)
[2024-10-21] MEDS: DOCUSATE 100 MG CAP PO PRN (06:17)
[2024-10-21] MEDS: ACETAMINOPHEN TAB 500 MG TAB PO PRN (06:17)
[2024-10-21] MEDS: ONDANSETRON 4 MG/2 ML VIAL IVP PRN (06:28)
[2024-10-21] MEDS: KETOROLAC 15 MG/ML 1 ML VIAL IVP PRN (06:28)
[2024-10-21] MEDS: DEXAMETHASONE SOD PHOSPHATE 10 MG/ML 1 ML VIAL IV PRN (06:28)
[2024-10-21] MEDS: FAMOTIDINE 20 MG/2 ML VIAL IVP PRN (06:29)
[2024-10-21] MEDS: LACTATED RINGERS 1,000 ML IV SCH (06:37)
[2024-10-21] MEDS: IV FLUID CONTINUATION 1,000 ML IV ONE (06:37)
[2024-10-21] MEDS: MIDAZOLAM 2 MG/2 ML VIAL IV PRN (06:42)
[2024-10-21] MEDS ORDERED: ROPIVACAINE 5 MG/ML 30 ML VIAL ONE (07:09)
[2024-10-21] MEDS ORDERED: PROPOFOL 10 MG/ML 20 ML VIAL IV ONE (07:09)
[2024-10-21] MEDS ORDERED: GLYCOPYRROLATE 0.2 MG/ML 2 ML VIAL ONE (07:09)
[2024-10-21] MEDS ORDERED: SUCCINYLCHOLINE CHLORIDE 200 MG/10 ML VIAL IV ONE (07:09)
[2024-10-21] MEDS ORDERED: ROCURONIUM 10 MG/ML (5 ML VIAL) IV ONE (07:09)
[2024-10-21] MEDS ORDERED: DEXAMETHASONE SOD PHOSPHATE 4 MG/ML 1 ML VIAL ONE (07:09)
[2024-10-21] MEDS ORDERED: TRANEXAMIC 1,000 MG/100ML-NACL PREMIX BAG ONE (07:09)
[2024-10-21] MEDS ORDERED: KETAMINE HCL IN 0.9 % NACL 50 MG/5 ML SYRINGE ONE (07:09)
[2024-10-21] MEDS ORDERED: fentaNYL (PF) 50 MCG/ML 2 ML AMP ONE (07:09)
[2024-10-21] MEDS ORDERED: PHENYLEPHRINE-0.9% NACL SYG 1,000 MCG/10 ML SYRINGE ONE (07:09)
[2024-10-21] MEDS ORDERED: LIDOCAINE 1% INJ 10MG/ML (20 ML MDV) ONE (07:09)
[2024-10-21] MEDS ORDERED: NEOSTIGMINE 1 MG/ML 10 ML VIAL ONE (07:09)
[2024-10-21] MEDS: ceFAZolin 2 GM in DEXTROSE 5% IN WATER 50 ML IVPB PRN (07:14)
[2024-10-21] MEDS: ROPIVACAINE/EPI/CLONIDINE/KET 50 ML SYRINGE MISCELLANE PRN (07:48)
[2024-10-21] MEDS: LACTATED RINGERS 1,000 ML IV ONE (08:37)
[2024-10-21] MEDS ORDERED: HYDROmorphone 0.5 MG/0.5 ML SYRINGE IVP PRN ×2 (09:06)
[2024-10-21] MEDS ORDERED: ONDANSETRON 4 MG/2 ML VIAL IVP PRN (09:06)
[2024-10-21] MEDS ORDERED: bisacodyL 10 MG SUPP RECTAL PRN (09:06)
[2024-10-21] MEDS ORDERED: TEMAZEPAM 15 MG CAP PO PRN (09:06)
[2024-10-21] MEDS ORDERED: NA PHOS,M-B/NA PHOS,DI-BA 133 ML ENEMA RECTAL PRN (09:06)
[2024-10-21] MEDS ORDERED: diazePAM 5 MG TAB PO PRN ×2 (09:06)
[2024-10-21] MEDS ORDERED: NALOXONE 0.4 MG/ML 1 ML VIAL IV PRN (09:06)
[2024-10-21] MEDS ORDERED: hydrOXYzine pamoate 25 MG CAP PO PRN (09:06)
[2024-10-21] MEDS ORDERED: MAGNESIUM HYDROXIDE 2,400 MG/30 ML CUP PO PRN (09:06)
--- NOTE | 2024-10-21 09:06 | P.OP ---
Date of Procedure: 10/21/24 Preoperative Diagnosis: Severe right knee osteoarthritis Postoperative Diagnosis: Same Procedure(s) Performed: 1. Right/Left total knee arthroplasty 2. Computer assisted musculoskeletal navigation using CT/MRI images Implants: 1. Dominik Triathlon CR Femur Size #3 2. Dominik Tri[employer]lon [place] Tibial Base Size #3 3. Dominik Triathlon CS poly Size #3, 10-mm 4. [place] Triathlon all poly patella, Size #29 Anesthesia: JERAMIE, regional Surgeon: Adrian David Sagger Preparer #1: Harpreet Corbin Estimated Blood Loss (ml): 100 IV fluids (ml): 800 Pathology: none sent Condition: stable Disposition: PACU Indications for Procedure: I met with the patient preoperatively in the office setting and discussed treatment of their symptomatic knee arthritis. They failed a long course of nonsurgical treatment and elected to proceed with an elective total knee replacement. I discussed the potential risks and complications at length and gave them ample time to ask questions. Risks discussed included: risks from anesthesia, superficial site surgical infection, acute and/or chronic periprosthetic joint infection, delayed wound healing, drainage, wound necrosis, instability, stiffness, stiffness requiring manipulation and/or revision surgery, damage to local blood vessels or nerves, aseptic loosening of the implants, extensor mechanism issues including disruption, patellar maltracking, avascular necrosis etc., continued or worsened knee pain, generalized dissatisfaction with surgical outcome, need for revision surgery, an inability to regain preinjury level of function, DVT, PE, other medical complications, and possibly loss of life or limb. The patient voiced their understanding that while these are the most common complications other less common complications are possible. They provided both their verbal and written consent to go forward with surgery. Operative Findings: Severe tricompartmental knee osteoarthritis Description of Procedure: The patient was identified in preoperative holding and the correct operative extremity was verified and marked with a marker. I reviewed the consent form with the patient at length. All of their questions were answered. The patient was given a block by anesthesia. They were then brought back to the operating room. They were transferred onto the operating room table where a general anesthetic, preoperative antibiotics, and tranexamic acid were administered by anesthesia. A tourniquet was applied to the proximal aspect of the operative extremity. The contralateral extremity was padded under the heel and secured to the operating room table with a nonsterile blue towel and tape. The ipsilateral arm was carefully draped across the patient's chest and secured with a pillow and foam. A post was applied over the lateral aspect of the ipsilateral thigh and a bolster was placed under the ipsilateral foot. I verified that the operative extremity was stable and the knee was flexed to 90. The operative extremity was then placed in a leg garces, nonsterile drapes were applied, and the extremity was prepped and draped sterilely in the standard sterile fashion. Prior to starting surgery timeout was performed identifying the correct patient, operative extremity, and procedure. The leg was then elevated, exsanguinated with an Esmarch bandage, and the tourniquet was inflated. An anterior midline incision was made sharply with a scalpel. Once I had dissected deep to the superficial fascial layer medial and lateral flaps were elevated. A medial parapatellar arthrotomy was created. Upon opening the knee joint there were diffuse arthritic changes in all 3 compartments. The anterior horn of the medial meniscus were sharply released and a medial release was performed around the posterior medial corner of the knee to facilitate retractor placement. The fat pad was excised with electrocautery. Remnants of the ACL and PCL were then excised from the notch. 4 mm pins were then placed within the incision in the medial distal femur and proximal tibia. Arrays were applied to the pins and I verified they were completely tightened. The knee was then registered with the Delectable robot and manipulations in implant position were made to balance the knee and opitmize implant position. Using the Zay robotic saw all cuts were made in accordance with our plan. After all bony fragments had been removed the cuts were verified with the planar probe. The tibia was then subluxed forward and sized. The knee was brought into flexion and a lamina lot boss was placed to allow removal of the meniscal remnants both medially and laterally as well as posterior osteophytes. Local anesthetic was then infiltrated around the joint capsule. Trial implants were then placed within the knee. Range of motion and collateral ligament tension was then evaluated. Adjustments in implant size and position were then made accordingly. Once the knee was felt to be appropriately balanced the Zay pins were removed. The patella was then cut, sized, and punched. A trial patellar button was then placed. With the trial components in place, the patella tracked midline. The femur was then drilled and the trial component removed. The trial tibial component was then appropriately rotated, pinned, and prepared for the keel. All trial components were then removed from the knee. The knee was thoroughly irrigated with pulsatile lavage. Cement was prepared via vacuum mixing in a bowl on the back table. Once the cement had reached appropriate consistency, I hand pressurized cement into the tibia and gently impacted the tibial implant into place. Cement was carefully removed from around the tibial tray and the poly liner was tapped into placed, engaging the locking mechanism. The femur was then exposed and cement was hand pressurized into the cut surfaces. The femoral implant was gently tapped into place and cement was carefully removed. A wet lap sponge was used to wipe down the bearing surface of the femur and the knee was extended to further pressurize cement. With the knee extended, cement was pressurized into the cut surface of the patella and the patella button was placed and compressed with a clamp. All extruded cement was removed including from the pin sites. The knee was held in extension until the cement had fully hardened. Once the cement had hardened the knee was evaluated one final time with the final polyethylene liner in place. The knee had full extension and flexion and felt stable to varus and valgus stress throughout the arc of motion. The tourniquet was released and with the tourniquet down the patella tracked midline. All bleeders were controlled with electrocautery. The knee was then soaked for 3 minutes with a dilute Betadine soak. The knee was thoroughly irrigated using 3 L of sterile saline and pulsatile lavage. A deep drain was placed. The extensor mechanism was then reapproximated using pop off Vicryl sutures followed by a running barbed suture. The knee was then closed in layers with a 0 strata fix for the deep fascial layer, 2-0 strata fix for the superficial subcutaneous layer and Monocryl and Steri-Strips for the skin. A sterile dressing and drain sponge were applied. I verified that all instrument, sponge, and sharp counts were correct. The patient was then transferred off the operating room table, extubated, and brought to recovery having tolerated the procedure well. Harpreet Corbin PA-C was required as a skilled assistant production manager due to the complexity of surgery for patient positioning, draping, exposure, retraction, closure of wound and application of dressing. PLAN: The patient can weight-bear as tolerated on the operative extremity. DVT prophylaxis with aspirin 81 mg twice a day based on preoperative risk stratification. Follow-up in the office in 2 weeks for wound check and x-rays of the knee including an AP and lateral.
--- NOTE | 2024-10-21 09:49 | XR ---
EXAMINATION TYPE: XR knee limited RT DATE OF EXAM: 10/21/2024 CLINICAL HISTORY: Postoperative evaluation Two views of the right knee are submitted. Identified are changes of total knee arthroplasty with femoral and tibial components appearing well seated. Postsurgical soft tissue changes are noted. Alignment is anatomic. [facility], , 10/21/2024 9:47 AM
[2024-10-21] MEDS: ONDANSETRON 4 MG/2 ML VIAL IVP STA (10:16)
[2024-10-21] MEDS: DEXAMETHASONE SOD PHOSPHATE 4 MG/ML 1 ML VIAL IV ONE (12:26)
[2024-10-21] MEDS: ONDANSETRON 4 MG/2 ML VIAL IVP ONE (12:27)
[2024-10-21] MEDS: SODIUM CHLORIDE 0.9% 1,000 ML IV SCH (12:27)
--- NOTE | 2024-10-21 15:26 | P.CONS ---
History of Present Illness - History of Present Illness Patient is a lady admitted for elective right knee arthroplasty. Postoperativel y patient pain is fairly well-controlled clinically doing well does have history of hypertension blood pressure is fairly within normal limits. Slightly on the higher side. Patient any fever chills nausea vomiting abdominal pain dysuria. REVIEW OF SYSTEMS: All other systems are negative except those mentioned in the HPI PHYSICAL EXAMINATION: GENERAL: The patient is alert and oriented x3, not in any acute distress. Well developed, well nourished. HEENT: Pupils are round and equally reacting to light. EOMI. No scleral icterus. No conjunctival pallor. Normocephalic, atraumatic. No pharyngeal erythema. No thyromegaly. CARDIOVASCULAR: S1 and S2 present. No murmurs, rubs, or gallops. PULMONARY: Chest is clear to auscultation, no wheezing or crackles. ABDOMEN: Soft, nontender, nondistended, normoactive bowel sounds. No palpable organomegaly. MUSCULOSKELETAL: Deferred to orthopedic surgery EXTREMITIES: No cyanosis, clubbing, or pedal edema. NEUROLOGICAL: Gross neurological examination did not reveal any focal deficits. SKIN: No rashes. Assessment and plan -Right knee arthroplasty pain management DVT prophylaxis per primary service -Bradycardia possibly sinus bradycardia will obtain EKG to make sure patient does not have any high degree heart block. Patient is not on any beta-garcia - Hypertension blood pressure is slightly elevated patient will be resumed on her home medications for this - Hypothyroidism will obtain TSH considering her bradycardia, resumed on home dose of levothyroxine DVT prophylaxis: As per primary service Past Medical History Past Medical History: Hypertension, Osteoarthritis (OA), Thyroid Disorder Additional Past Medical History / Comment(s): hypothyroid, bilat osteoarthritis bilat knees, aortic valve stenosis, hypertrophic cardiomyopathy-sees José History of Any Multi-Drug Resistant Organisms: None Reported Past Surgical History: Appendectomy, Hysterectomy, Joint Replacement, Tonsillectomy Additional Past Surgical History / Comment(s): Colonoscopy, left knee replaced, buzz cataracts removed Past Anesthesia/Blood Transfusion Reactions: No Reported Reaction, Motion Sickness Smoking Status: Never smoker - Past Family History Father History Unknown: Yes Additional Family Medical History / Comment(s): Father in a train accident. Mother Family Medical History: Respiratory Disorder Additional Family Medical History / Comment(s): Mother has respiratory issues. She is a smoker. Medications and Allergies Home Medications Medication Instructions Recorded Confirmed Type Cholecalciferol [Vitamin D3 (25 1,000 unit PO DAILY 06/24/16 10/18/24 History Mcg = 1000 Iu)] Ibuprofen [Motrin] 200 - 400 mg PO Q6H PRN 06/24/16 10/18/24 History Levothyroxine Sodium [Synthroid] 75 mcg PO DAILY 06/24/16 10/18/24 History Losartan-Hctz 50-12.5 mg [Hyzaar 1 tab PO HS 06/24/16 10/18/24 History 50-12.5] Multivit-Min/Iron/Folic/Lutein 1 tab PO DAILY 06/24/16 10/18/24 History [Centrum Silver Women Tablet] Allergies Allergy/AdvReac Type Severity Reaction Status Date / Time codeine AdvReac Confusion Verified 10/21/24 05:53 Physical Exam Vitals: Vital Signs Temp Pulse Pulse Resp BP BP Pulse Ox 10/21/24 14:27 52 L 142/87 98 10/21/24 14:12 57 L 143/82 97 10/21/24 13:57 57 L 149/78 97 10/21/24 13:42 53 L 138/78 99 10/21/24 13:27 54 L 126/77 98 10/21/24 13:13 59 L 143/73 98 10/21/24 12:57 53 L 133/80 98 10/21/24 12:42 58 L 148/77 98 10/21/24 12:28 56 L 135/72 98 10/21/24 12:13 97.6 F 53 L 17 146/85 99 10/21/24 11:30 49 L 14 133/69 100 10/21/24 11:00 50 L 16 117/62 99 10/21/24 10:30 49 L 16 134/64 99 10/21/24 10:17 51 L 16 135/68 99 10/21/24 10:02 50 L 16 131/66 98 10/21/24 09:47 53 L 16 134/68 98 10/21/24 09:32 56 L 16 129/66 98 10/21/24 09:17 97.1 F L 62 14 147/70 97 10/21/24 06:51 59 L 16 155/81 99 05/02/25 06:01 96.9 F L 62 16 160/78 94 L Intake and Output 10/21/24 10/21/24 10/21/24 06:59 14:59 22:59 Intake Total 300 1250 Output Total 100 Balance 300 1150 Intake: IV 300 1250 Output: Estimated Blood Loss 100 Other: # Voids 1 Weight 80.6 kg
[2024-10-21] MEDS: ceFAZolin 2 GM in DEXTROSE 5% IN WATER 50 ML IVPB SCH (16:40)
[2024-10-21] MEDS: HYDROcodone/APAP 5-325MG 1 EACH TAB PO PRN (16:40)
[2024-10-21] MEDS: SENNOSIDES-DOCUSATE SODIUM 1 EACH TAB PO SCH (21:23)
[2024-10-21] MEDS: ASPIRIN 81 MG PO SCH (21:23)
[2024-10-21] MEDS: LOSARTAN-HCTZ 50-12.5 MG 1 EACH TAB PO SCH (21:23)
[2024-10-21] MEDS: HYDROcodone/APAP 10-325MG 1 EACH TAB PO PRN (22:55)
[2024-10-22] MEDS: LEVOTHYROXINE 75 MCG TAB PO SCH (05:31)
[2024-10-22] MEDS: HYDROmorphone 0.5 MG/0.5 ML SYRINGE IVP PRN (07:02)
--- NOTE | 2024-10-22 07:55 | P.PN ---
Subjective Patient was seen at bedside this morning. She is complaining of pain in her right knee. She has also had nausea overnight and after surgery. She is otherwise without complaints. She denies chest pain or shortness of breath. Objective - Vital Signs Vital signs: Vital Signs Temp 97.9 F 10/22/24 00:50 Pulse 50 L 10/22/24 00:50 Resp 18 10/22/24 00:50 BP 116/64 10/22/24 00:50 Pulse Ox 94 L 10/22/24 00:50 FiO2 Intake & Output 10/21/24 10/22/24 10/22/24 18:59 06:59 18:59 Intake Total 1250 500 Output Total 100 Balance 1150 500 Weight 80.6 kg Intake: IV 1250 Oral 500 Output: Estimated Blood Loss 100 Other: # Voids 1 3 - Exam Patient is resting comfortably in bed. She is alert and able to answer questions. A focused exam of the right lower extremity was conducted. On inspection there is an intact dressing with no drainage or strikethrough. There is some swelling in her leg. Femoral nerve function is intact. She is able to actively plantarflex and dorsiflex her ankle and her toes. The foot is warm and well-perfused with brisk capillary refill Assessment and Plan Assessment: Postop day #1 status post right total knee replacement Plan: 1. Weightbearing as tolerated on the operative extremity. Up with assistance and a walker. 2. DVT prophylaxis with aspirin 81 mg twice a day 3. Physical therapy for gait training and mobilization 4. Leave surgical dressing in place. 5. Internal medicine for perioperative medical management 6. Disposition: Awaiting evaluation by physical therapy. The patient will likely need an additional 24 hours due to pain and nausea. If she is doing well later today and would like to discharge home she can.
[2024-10-22 10:17] LABS: HCT 37.4 % (37.2-46.3); HGB 12.2 g/dL (12.0-15.0); MCH 30.7 pg (27.0-32.0); MCHC 32.6 g/dL (32.0-37.0); MCV 94.2 FL (80.0-97.0); Mean Platelet Volume 11.3 FL (9.5-12.2); NRBC Per 100 WBC 0 X 10*3/uL (0.00-0.01); Platelet Count 315 X 10*3/uL (140-440); RBC 3.97 X 10*6/uL (4.10-5.20); RDW 12.2 % (11.5-14.5); WBC 15.33 X 10*3/uL (4.50-10.00)
[2024-10-22 10:18] LABS: Basophils # (A) 0.02 X 10*3/uL (0.00-0.10); Basophils % (A) 0.1 %; Eosinophils # (A) 0 X 10*3/uL (0.04-0.35); Eosinophils % (A) 0 %; Lymphocytes # (A) 1.04 X 10*3/uL (0.90-5.00); Lymphocytes % (A) 6.8 %; Monocytes # (A) 1.29 X 10*3/uL (0.20-1.00); Monocytes % (A) 8.4 %; Neutrophils # (A) 12.89 X 10*3/uL (1.80-7.70); Neutrophils % (A) 84.1 %
--- NOTE | 2024-10-22 12:51 | P.PN ---
Subjective Patient is a lady admitted for elective right knee arthroplasty. Postoperatively patient pain is fairly well-controlled clinically doing well does have history of hypertension blood pressure is fairly within normal limits. Slightly on the higher side. Patient any fever chills nausea vomiting abdominal pain dysuria. 10/22/2024 Patient pain is fairly well-controlled patient apparently will be discharged tomorrow. No overnight events REVIEW OF SYSTEMS: All other systems are negative except those mentioned in the HPI PHYSICAL EXAMINATION: GENERAL: The patient is alert and oriented x3, not in any acute distress. Well developed, well nourished. HEENT: Pupils are round and equally reacting to light. EOMI. No scleral icterus. No conjunctival pallor. Normocephalic, atraumatic. No pharyngeal erythema. No thyromegaly. CARDIOVASCULAR: S1 and S2 present. No murmurs, rubs, or gallops. PULMONARY: Chest is clear to auscultation, no wheezing or crackles. ABDOMEN: Soft, nontender, nondistended, normoactive bowel sounds. No palpable organomegaly. MUSCULOSKELETAL: Deferred to orthopedic surgery EXTREMITIES: No cyanosis, clubbing, or pedal edema. NEUROLOGICAL: Gross neurological examination did not reveal any focal deficits. SKIN: No rashes. Assessment and plan -Right knee arthroplasty pain management DVT prophylaxis per primary service -Bradycardia EKG showed sinus bradycardia patient is asymptomatic at this time - Hypertension blood pressure is s well-controlled on home regimen which will be continued no changes are being made - Hypothyroidism: TSH within normal limits DVT prophylaxis: As per primary service Objective - Vital Signs Vital signs: Vital Signs Temp 97.8 F 10/22/24 08:36 Pulse 51 L 10/22/24 08:36 Resp 16 10/22/24 08:36 BP 122/72 10/22/24 08:36 Pulse Ox 98 10/22/24 08:36 FiO2 Intake & Output 10/21/24 10/22/24 10/22/24 18:59 06:59 18:59 Intake Total 1250 500 Output Total 100 Balance 1150 500 Weight 80.6 kg Intake: IV 1250 Oral 500 Output: Estimated Blood Loss 100 Other: Voiding Method Toilet # Voids 1 3 1 - Labs CBC & Chem 7: 10/22/24 04:09 Labs: Abnormal Lab Results - Last 24 Hours (Table) 10/22/24 Range/Units 04:09 WBC 15.33 H (4.50-10.00) X 10*3/uL RBC 3.97 L (4.10-5.20) X 10*6/uL Immature Gran # 0.09 H (0.00-0.04) X 10*3/uL Neutrophils # 12.89 H (1.80-7.70) X 10*3/uL Monocytes # 1.29 H (0.20-1.00) X 10*3/uL Eosinophils # 0 L (0.04-0.35) X 10*3/uL
[2024-10-23 08:23] VITALS: BP 176/105; PULSE 74; RESP 20; TEMP 98
--- NOTE | 2024-10-23 08:37 | P.PN ---
Subjective The patient is sitting up in a chair at the time of my evaluation. She is complaining of pain in her right knee. She is also complaining of her left antecubital fossa IV and attempts of blood draws. She says her knee pain feels better when she is walking. She has no other complaints. Objective - Vital Signs Vital signs: Vital Signs Temp 98 F 10/23/24 08:03 Pulse 74 10/23/24 08:03 Resp 20 10/23/24 08:03 BP 176/105 10/23/24 08:03 Pulse Ox 98 10/23/24 08:03 FiO2 Intake & Output 10/22/24 10/23/24 10/23/24 18:59 06:59 18:59 Intake Total 500 Balance 500 Intake: Oral 500 Other: Voiding Method Toilet Toilet # Voids 2 3 - Exam Patient is sitting up in a chair. She is alert and able to answer questions. A focused exam of the right lower extremity was conducted. Her dressing is intact. There is moderate swelling in the thigh and calf but both are soft and compressible. She can perform a straight leg raise. She is able to actively plantarflex and dorsiflex her ankle and her toes. The foot is warm and well- perfused with brisk capillary refill. - Labs CBC & Chem 7: 10/22/24 04:09 Labs: Abnormal Lab Results - Last 24 Hours (Table) 10/22/24 Range/Units 04:09 WBC 15.33 H (4.50-10.00) X 10*3/uL RBC 3.97 L (4.10-5.20) X 10*6/uL Immature Gran # 0.09 H (0.00-0.04) X 10*3/uL Neutrophils # 12.89 H (1.80-7.70) X 10*3/uL Monocytes # 1.29 H (0.20-1.00) X 10*3/uL Eosinophils # 0 L (0.04-0.35) X 10*3/uL Assessment and Plan Assessment: Postoperative day #2 status post right total knee arthroplasty Plan: Continue treatment as outlined previously. We are transitioning the patient from IV to oral pain medications. Continue DVT prophylaxis. The patient would like to see how she does on oral pain medications this morning, and if she is doing well would like to try and discharge home. Appreciate internal medicine's assistance with perioperative medical management.
--- NOTE | 2024-10-23 10:01 | P.DS ---
Providers Date of admission: 10/21/2024 Attending physician: Adrian David Consults: 10/21/24 09:06 Consult Physician Routine Consulting Provider: Trixie Rico Consult Reason/Comments: post op medical management Do you want consulting provider notified?: Yes [facility] Course: The patient is a 69 year old female who underwent an uncomplicated right total knee replacement on 10/21. She was admitted under my care. Internal medicine was consulted. She was transitioned from IV to PO pain meds. She was started on Aspirin for DVT prophylaxis. She worked with PT. She was cleared for d/c home POD#2. Patient Condition at Discharge: Good Plan - Discharge Summary Discharge Rx Participant: No New Discharge Prescriptions: New Aspirin 81 mg PO BID #60 tab Docusate [Colace] 100 mg PO BID #60 capsule HYDROcodone/APAP 5-325MG [Martin 5-325] 1 - 2 tab PO Q6HR PRN #24 tab PRN Reason: Pain Ondansetron [Zofran] 4 mg PO Q8HR PRN #12 tab PRN Reason: Nausea Diclofenac Sodium [Voltaren] 75 mg PO BID #60 tab Omeprazole 40 mg PO DAILY #30 cap No Action Multivit-Min/Iron/Folic/Lutein [Centrum Silver Women Tablet] 1 tab PO DAILY Ibuprofen [Motrin] 200 - 400 mg PO Q6H PRN PRN Reason: Pain Cholecalciferol [Vitamin D3 (25 Mcg = 1000 Iu)] 1,000 unit PO DAILY Losartan-Hctz 50-12.5 mg [Hyzaar 50-12.5] 1 tab PO HS Levothyroxine Sodium [Synthroid] 75 mcg PO DAILY Discharge Medication List Cholecalciferol [Vitamin D3 (25 Mcg = 1000 Iu)] 1,000 unit PO DAILY 06/24/16 [History] Ibuprofen [Motrin] 200 - 400 mg PO Q6H PRN 06/24/16 [History] Levothyroxine Sodium [Synthroid] 75 mcg PO DAILY 06/24/16 [History] Losartan-Hctz 50-12.5 mg [Hyzaar 50-12.5] 1 tab PO HS 06/24/16 [History] Multivit-Min/Iron/Folic/Lutein [Centrum Silver Women Tablet] 1 tab PO DAILY 06/24/16 [History] Aspirin 81 mg PO BID #60 tab 10/22/24 [Rx] Diclofenac Sodium [Voltaren] 75 mg PO BID #60 tab 10/22/24 [Rx] Docusate [Colace] 100 mg PO BID #60 capsule 10/22/24 [Rx] HYDROcodone/APAP 5-325MG [Martin 5-325] 1 - 2 tab PO Q6HR PRN #24 tab 10/22/24 [Rx] Omeprazole 40 mg PO DAILY #30 cap 10/22/24 [Rx] Ondansetron [Zofran] 4 mg PO Q8HR PRN #12 tab 10/22/24 [Rx] Follow up Appointment(s)/Referral(s): [facility] [NON-STAFF] - 1-2 Days (will call to set up scehule any questions please callagency) Adrian David MD [Medical Doctor] - 2 Weeks Activity/Diet/Wound Care/Special Instructions: 1. Weight-bear as tolerated on your operative extremity unless instructed otherwise. Use a walker or other assistive device to ambulate. 2. Leave surgical dressing in place. If your dressing becomes saturated with blood, there is drainage, or the dressing becomes loose please contact the office. 3. It is okay to shower with your surgical dressing, but do not submerge in water (no hot tubs, bath's, swimming etc.) 4. Make sure to take her blood clot prevention medication as prescribed (aspirin, Eliquis, Xarelto, and Plavix are commonly prescribed medications for blood clot prevention) 5. While taking Martin or Percocet for pain make sure you're taking a stool softener (Colace) and drink lots of water. 6. Keep all follow-up appointments as scheduled. You will usually be seen in 1-2 weeks following surgery. 7. Please contact the office with any questions or concerns [phone] Discharge Disposition: HOME WITH HOME HEALTH SERVICES
--- NOTE | 2024-10-23 18:46 | P.ANPRN ---
Procedure Note - Anesthesia - Nerve Block Performed Right Adductor Canal Single Time Out Performed: Yes Date of Procedure: 10/21/24 Procedure Start Time: :41 Procedure Stop Time: 06:45 Location of Patient: PreOp Indication: Acute Post-Operative Pain, Requested by Surgeon Sedation Type: Sedate with meaningful contact maintained Preparation: Sterile Prep Position: Supine Needle Types: Pajunk Needle Gauge: 21 Ultrasound used to visualize needle placement: Yes Ultrasound used to observe medication spread: Yes Blood Aspirated: No Pain Paresthesia on Injection Noted: No Resistance on Injection: Normal Image Stored and Saved: Yes Events: Uneventful and Well Tolerated (Ropivacaine 0.5% 20 cc plus dexamethasone 4 mg)
--- NOTE | 2024-10-23 18:48 | P.ANPRN ---
Procedure Note - Anesthesia - Nerve Block Performed Right iPack Single Time Out Performed: Yes Date of Procedure: 10/21/24 Procedure Start Time: 06:46 Procedure Stop Time: 06:48 Location of Patient: PreOp Indication: Acute Post-Operative Pain, Requested by Surgeon Sedation Type: Sedate with meaningful contact maintained Preparation: Sterile Prep Position: Left Lateral Needle Types: Pajunk Ultrasound used to visualize needle placement: Yes Ultrasound used to observe medication spread: Yes Blood Aspirated: No Pain Paresthesia on Injection Noted: No Resistance on Injection: Normal Image Stored and Saved: Yes Events: Uneventful and Well Tolerated (Ropivacaine 0.5% 20 cc plus dexamethasone 4 mg)
== END 2024-10-23 11:58 | disposition home health service (06) ==
LOC: OR 05:35 → 4SSUR 09:17 → OR 10-23 11:58
PROVIDERS: ATTEND Orthopaedic Surgery
DX: M17.11 Unilateral primary osteoarthritis, right knee (principal); I10 Essential (primary) hypertension; G89.18 Other acute postprocedural pain; E03.9 Hypothyroidism, unspecified; Z79.890 Hormone replacement therapy; Z79.899 Other long term (current) drug therapy; Z88.5 Allergy status to narcotic agent; Z90.49 Acquired absence of other specified parts of digestive tract; Z90.710 Acquired absence of both cervix and uterus
CPT/HCPCS: 0055T; 27447; 64447; 64473; 84443; 85025